=== PATIENT | female | born 1955 | race Caucasian/White ===

== ENCOUNTER 2018-06-28 18:17 | Observation (INO) | payer OTHER ==
[2018-06-28] MEDS ORDERED: MORPHINE SULFATE 4 MG/ML SYRINGE IVP STA (19:00)
[2018-06-28] MEDS ORDERED: ONDANSETRON 4 MG/2 ML VIAL IVP STA (19:00)
[2018-06-28] MEDS ORDERED: SODIUM CHLORIDE 0.9% 1,000 ML IV SCH (19:00)
--- NOTE | 2018-06-28 19:22 | ED ---
Nausea/Vomiting/Diarrhea HPI - General Source: patient, RN notes reviewed, old records reviewed Mode of arrival: ambulatory Limitations: no limitations <Maria E Carcamo - Last Filed: 06/28/18 20:21> <Cam Murray - Last Filed: 06/29/18 00:35> - General Chief complaint: Nausea/Vomiting/Diarrhea Stated complaint: vomiting/SOB/confusion Time Seen by Provider: 06/28/18 18:41 - History of Present Illness Initial comments: Patient is a 63-year-old female who presents emergency Department today with complaints of nausea and vomiting since 4 PM. She plans some upper abdominal pain and back pain. She's been dealing with chronic back issues for the past 2 months and undergoing physical therapy. She reports is generally healthy. Denies any significant comorbidities. Last time she was in the hospital was 3 years ago when she delivered her child. Patient states that she feels dehydrated and uncontrollable vomiting and it was green bile. She states that it's painful for her to take a deep breath. She complains of tingling down bilateral arms. (Maria E Carcamo) - Related Data Home Medications Medication Instructions Recorded Confirmed Aspirin EC [Ecotrin Low Dose] 81 mg PO DAILY 06/28/18 06/28/18 Cyclobenzaprine [Flexeril] 10 mg PO BID 06/28/18 06/28/18 Ibuprofen [Motrin Ib] 400 mg PO Q6H PRN 06/28/18 06/28/18 Multivitamin,Therapeutic [Thera] 1 tab PO DAILY 06/28/18 06/28/18 Vitamin B Complex 1 cap PO DAILY 06/28/18 06/28/18 Allergies Allergy/AdvReac Type Severity Reaction Status Date / Time No Known Allergies Allergy Verified 06/28/18 18:43 Review of Systems ROS Other: All systems not noted in ROS Statement are negative. <Maria E Carcamo - Last Filed: 06/28/18 20:21> ROS Other: All systems not noted in ROS Statement are negative. <Cam Murray - Last Filed: 06/29/18 00:35> ROS Statement: Those systems with pertinent positive or pertinent negative responses have been documented in the HPI. Past Medical History Additional Past Medical History / Comment(s): Back pains History of Any Multi-Drug Resistant Organisms: None Reported Past Surgical History: No Surgical Hx Reported Past Psychological History: No Psychological Hx Reported Smoking Status: Never smoker Past Alcohol Use History: None Reported Past Drug Use History: None Reported <Maria E Carcamo - Last Filed: 06/28/18 20:21> General Exam Limitations: no limitations General appearance: alert, in no apparent distress Head exam: Present: atraumatic, normocephalic, normal inspection Eye exam: Present: normal appearance, PERRL, EOMI. Absent: scleral icterus, conjunctival injection, periorbital swelling ENT exam: Present: normal exam, mucous membranes moist Neck exam: Present: normal inspection. Absent: tenderness, meningismus, lymphadenopathy Respiratory exam: Present: normal lung sounds bilaterally. Absent: respiratory distress, wheezes, rales, rhonchi, stridor Cardiovascular Exam: Present: regular rate, normal rhythm, normal heart sounds. Absent: systolic murmur, diastolic murmur, rubs, gallop, clicks GI/Abdominal exam: Present: soft, tenderness (Diffuse abdominal tenderness.), normal bowel sounds. Absent: distended, guarding, rebound, rigid Extremities exam: Present: normal inspection, full ROM, normal capillary refill. Absent: tenderness, pedal edema, joint swelling, calf tenderness Back exam: Present: normal inspection Neurological exam: Present: alert, oriented X3, CN II-XII intact Psychiatric exam: Present: normal affect Skin exam: Present: warm, dry, intact, normal color. Absent: rash <Maria E Carcamo - Last Filed: 06/28/18 20:21> - General Exam Comments Initial Comments: This is a 63-year-old female. Alert and oriented. Patient appears in no significant distress at this time. (Maria E Carcamo) Course <Cam Murray - Last Filed: 06/29/18 00:35> Vital Signs 06/28/18 06/28/18 06/28/18 18:26 20:30 21:00 Temperature 95 F L 97.5 F L Pulse Rate 145 H 120 H 118 H Respiratory 24 14 16 Rate Blood Pressure 80/50 96/64 96/67 O2 Sat by Pulse 100 98 Oximetry 06/28/18 06/28/18 06/28/18 21:30 23:00 23:26 Temperature Pulse Rate 120 H 128 H 127 H Respiratory 14 15 20 Rate Blood Pressure 121/84 116/76 130/71 O2 Sat by Pulse 100 99 100 Oximetry 04/11/19 23:33 Temperature Pulse Rate 96 Respiratory 20 Rate Blood Pressure 148/74 O2 Sat by Pulse 100 Oximetry - Reevaluation(s) Reevaluation #1: 06/28/18 23:15 Repeat EKG shows narrow complex tachycardia with a rate of 1:30. QRS 80. QT 156. QTc to 29. Normal axis. Normal QRS. No acute ST change . 06/28/18 23:36 30 EKG shows sinus tachycardia 117. IN 160. QRS 78. QT 334. QTC 465. Normal axis. Normal QRS. No acute ST change. 06/29/18 00:34 Patient does not meet sepsis criteria. UTI diagnosis is of very mild UTI. Hypotension on arrival was secondary to dehydration. Tachycardia was secondary to dehydration in SVT. (Cam Murray) Procedures <Cam Murray - Last Filed: 06/29/18 00:35> - Procedures Initial comment: Patient chemically cardioverted with single dose of 6 mg adenosine. Patient had no Tachycardia 1:30 that improved to sinus tachycardia at 117 then 108. medications. Verbal informed consent was given. Timeout was performed. (Cam Novak) Medical Decision Making - Lab Data Result diagrams: 06/28/18 19:41 - Radiology Data Radiology results: report reviewed <Maria E Carcamo - Last Filed: 06/28/18 20:21> - Lab Data Result diagrams: 06/28/18 19:41 06/28/18 19:41 - Radiology Data Radiology results: report reviewed (cT scan of the chest abdomen pelvis shows no acute process), image reviewed (Chest x-ray shows no acute process) <Cam Murray - Last Filed: 06/29/18 00:35> - Medical Decision Making Patient again reevaluated with sinus rhythm at 90 on monitor. Case was discussed in detail with Dr. Garces, who will admit for Dr. Alfred would. She d oes recommend Rocephin and echo and cardiology consult. Patient is updated. (Cam Murray) - Lab Data Lab Results 06/28/18 06/28/18 06/28/18 Range/Units 19:41 19:41 19:41 WBC 14.1 H (3.8-10.6) k/uL RBC 4.57 (3.80-5.40) m/uL Hgb 14.6 (11.4-16.0) gm/dL Hct 44.3 (34.0-46.0) % MCV 97.0 (80.0-100.0) fL MCH 32.0 (25.0-35.0) pg MCHC 33.0 (31.0-37.0) g/dL RDW 12.4 (11.5-15.5) % Plt Count 328 (150-450) k/uL Neutrophils % 86 % Lymphocytes % 7 % Monocytes % 4 % Eosinophils % 1 % Basophils % 0 % Neutrophils # 12.2 H (1.3-7.7) k/uL Lymphocytes # 1.0 (1.0-4.8) k/uL Monocytes # 0.6 (0-1.0) k/uL Eosinophils # 0.2 (0-0.7) k/uL Basophils # 0.0 (0-0.2) k/uL PT (9.0-12.0) sec INR (<1.2) APTT (22.0-30.0) sec D-Dimer (<0.60) mg/L FEU Sodium 139 (137-145) mmol/L Potassium 4.3 (3.5-5.1) mmol/L Chloride 104 (98-107) mmol/L Carbon Dioxide 24 (22-30) mmol/L Anion Gap 11 mmol/L BUN 23 H (7-17) mg/dL Creatinine 0.51 L (0.52-1.04) mg/dL Est GFR (CKD-EPI)AfAm >90 (>60 ml/min/1.73 sqM) Est GFR (CKD-EPI)NonAf >90 (>60 ml/min/1.73 sqM) Glucose 130 H (74-99) mg/dL Lactic Ac Sepsis Rflx Plasma Lactic Acid [place] 2.2 H* (0.7-2.0) mmol/L Calcium 9.9 (8.4-10.2) mg/dL Total Bilirubin 0.8 (0.2-1.3) mg/dL AST 28 (14-36) U/L ALT 31 (9-52) U/L Alkaline Phosphatase 91 (38-126) U/L Troponin I (0.000-0.034) ng/mL Total Protein 7.1 (6.3-8.2) g/dL Albumin 4.4 (3.5-5.0) g/dL Urine Color Urine Appearance (Clear) Urine pH (5.0-8.0) Ur Specific [place] (1.001-1.035) Urine Protein (Negative) Urine Glucose (UA) (Negative) Urine Ketones (Negative) Urine Blood (Negative) Urine Nitrite (Negative) Urine Bilirubin (Negative) Urine Urobilinogen (<2.0) mg/dL Ur Leukocyte Esterase (Negative) Urine RBC (0-5) /hpf Urine WBC (0-5) /hpf Ur Squamous Epith Cells (0-4) /hpf Hyaline Casts (0-2) /lpf Urine Mucus (None) /hpf 06/28/18 06/28/18 06/28/18 Range/Units 19:41 19:41 20:46 WBC (3.8-10.6) k/uL RBC (3.80-5.40) m/uL Hgb (11.4-16.0) gm/dL Hct (34.0-46.0) % MCV (80.0-100.0) fL MCH (25.0-35.0) pg MCHC (31.0-37.0) g/dL RDW (11.5-15.5) % Plt Count (150-450) k/uL Neutrophils % % Lymphocytes % % Monocytes % % Eosinophils % % Basophils % % Neutrophils # (1.3-7.7) k/uL Lymphocytes # (1.0-4.8) k/uL Monocytes # (0-1.0) k/uL Eosinophils # (0-0.7) k/uL Basophils # (0-0.2) k/uL PT 9.8 (9.0-12.0) sec INR 0.9 (<1.2) APTT 23.7 (22.0-30.0) sec D-Dimer 0.33 (<0.60) mg/L FEU Sodium (137-145) mmol/L Potassium (3.5-5.1) mmol/L Chloride (98-107) mmol/L Carbon Dioxide (22-30) mmol/L Anion Gap mmol/L BUN (7-17) mg/dL Creatinine (0.52-1.04) mg/dL Est GFR (CKD-EPI)AfAm (>60 ml/min/1.73 sqM) Est GFR (CKD-EPI)NonAf (>60 ml/min/1.73 sqM) Glucose (74-99) mg/dL Lactic Ac Sepsis Rflx Y Plasma Lactic Acid [place] (0.7-2.0) mmol/L Calcium (8.4-10.2) mg/dL Total Bilirubin (0.2-1.3) mg/dL AST (14-36) U/L ALT (9-52) U/L Alkaline Phosphatase (38-126) U/L Troponin I <0.012 (0.000-0.034) ng/mL Total Protein (6.3-8.2) g/dL Albumin (3.5-5.0) g/dL Urine Color Urine Appearance (Clear) Urine pH (5.0-8.0) Ur Specific [place] (1.001-1.035) Urine Protein (Negative) Urine Glucose (UA) (Negative) Urine Ketones (Negative) Urine Blood (Negative) Urine Nitrite (Negative) Urine Bilirubin (Negative) Urine Urobilinogen (<2.0) mg/dL Ur Leukocyte Esterase (Negative) Urine RBC (0-5) /hpf Urine WBC (0-5) /hpf Ur Squamous Epith Cells (0-4) /hpf Hyaline Casts (0-2) /lpf Urine Mucus (None) /hpf 06/28/18 Range/Units 22:25 WBC (3.8-10.6) k/uL RBC (3.80-5.40) m/uL Hgb (11.4-16.0) gm/dL Hct (34.0-46.0) % MCV (80.0-100.0) fL MCH (25.0-35.0) pg MCHC (31.0-37.0) g/dL RDW (11.5-15.5) % Plt Count (150-450) k/uL Neutrophils % % Lymphocytes % % Monocytes % % Eosinophils % % Basophils % % Neutrophils # (1.3-7.7) k/uL Lymphocytes # (1.0-4.8) k/uL Monocytes # (0-1.0) k/uL Eosinophils # (0-0.7) k/uL Basophils # (0-0.2) k/uL PT (9.0-12.0) sec INR (<1.2) APTT (22.0-30.0) sec D-Dimer (<0.60) mg/L FEU Sodium (137-145) mmol/L Potassium (3.5-5.1) mmol/L Chloride (98-107) mmol/L Carbon Dioxide (22-30) mmol/L Anion Gap mmol/L BUN (7-17) mg/dL Creatinine (0.52-1.04) mg/dL Est GFR (CKD-EPI)AfAm (>60 ml/min/1.73 sqM) Est GFR (CKD-EPI)NonAf (>60 ml/min/1.73 sqM) Glucose (74-99) mg/dL Lactic Ac Sepsis Rflx Plasma Lactic Acid [place] (0.7-2.0) mmol/L Calcium (8.4-10.2) mg/dL Total Bilirubin (0.2-1.3) mg/dL AST (14-36) U/L ALT (9-52) U/L Alkaline Phosphatase (38-126) U/L Troponin I (0.000-0.034) ng/mL Total Protein (6.3-8.2) g/dL Albumin (3.5-5.0) g/dL Urine Color Yellow Urine Appearance Clear (Clear) Urine pH 7.0 (5.0-8.0) Ur Specific [place] 1.026 (1.001-1.035) Urine Protein Negative (Negative) Urine Glucose (UA) Negative (Negative) Urine Ketones 1+ H (Negative) Urine Blood Negative (Negative) Urine Nitrite Negative (Negative) Urine Bilirubin Negative (Negative) Urine Urobilinogen <2.0 (<2.0) mg/dL Ur Leukocyte Esterase Moderate H (Negative) Urine RBC 1 (0-5) /hpf Urine WBC 22 H (0-5) /hpf Ur Squamous Epith Cells 2 (0-4) /hpf Hyaline Casts 1 (0-2) /lpf Urine Mucus Rare H (None) /hpf 06/28/18 20:21 EKG performed at 1927 interpretation of wide QRS tachycardia. On my examination appears to be narrowed complex tachycardia. Ventricular rate of 1 37 bpm. IN interval and detect. QRS duration 136 most seconds. QT QTc is 312/471 ms. (Maria E Carcamo) Critical Care Time Critical Care Time: Yes Total Critical Care Time: 32 <Cam Murray - Last Filed: 06/29/18 00:35> Disposition <Maria E Carcamo - Last Filed: 06/28/18 20:21> Is patient prescribed a controlled substance at d/c from ED?: No Decision Time: 00:35 <Cam Murray - Last Filed: 06/29/18 00:35> Clinical Impression: SVT (supraventricular tachycardia), Dehydration, Vomiting, Urinary tract infection Disposition: ADMITTED IP TO THIS HOSP Referrals: Zaina Zuniga MD [Primary Care Provider] - 1-2 days
[2018-06-28 19:59] LABS: Basophils % (A) 0 %; Eosinophils # (A) 0.2 k/uL (0-0.7); Eosinophils % (A) 1 %; HCT 44.3 % (34.0-46.0); HGB 14.6 gm/dL (11.4-16.0); Lymphocytes % (A) 7 %; Mean Platelet Volume 6.4; Monocytes # (A) 0.6 k/uL (0-1.0); Monocytes % (A) 4 %; Neutrophils # (A) 12.2 k/uL (1.3-7.7); Neutrophils % (A) 86 %; Platelet Count 328 k/uL (150-450); RBC 4.57 m/uL (3.80-5.40); RDW 12.4 % (11.5-15.5); WBC 14.1 k/uL (3.8-10.6)
[2018-06-28 20:07] LABS: INR 0.9 (<1.2); Partial Thromboplastin Time 23.7 sec (22.0-30.0); Prothrombin Time 9.8 sec (9.0-12.0)
[2018-06-28 20:09] LABS: ALT 31 U/L (9-52); AST 28 U/L (14-36); Albumin 4.4 g/dL (3.5-5.0); Alkaline Phosphatase 91 U/L (38-126); Anion Gap 11 mmol/L; Blood Urea Nitrogen 23 mg/dL (7-17); Calcium 9.9 mg/dL (8.4-10.2); Carbon Dioxide 24 mmol/L (22-30); Chloride 104 mmol/L (98-107); Glucose 130 mg/dL (74-99); Potassium 4.3 mmol/L (3.5-5.1); Sodium 139 mmol/L (137-145); Total Bilirubin 0.8 mg/dL (0.2-1.3); Total Protein 7.1 g/dL (6.3-8.2)
[2018-06-28] MEDS: SODIUM CHLORIDE 0.9% 500 ML 500 ML IV SCH ×2 (20:17→20:18)
--- NOTE | 2018-06-28 20:22 | XR ---
EXAMINATION TYPE: XR chest 2V DATE OF EXAM: 06/28/2018 COMPARISON: NONE HISTORY: Fever and vomiting TECHNIQUE: Frontal and lateral views of the chest are obtained. FINDINGS: Heart and mediastinum are normal. Lungs are clear. Diaphragm is normal. Bony thorax appear s normal. There are chest leads. IMPRESSION: Normal chest.
[2018-06-28 20:25] LABS: D-Dimer 0.33 mg/L FEU (<0.60)
--- NOTE | 2018-06-28 21:36 | CT ---
EXAMINATION TYPE: CT chest angio for PE DATE OF EXAM: 06/28/2018 COMPARISON: None HISTORY: Pain, SOB, vomitling CT DLP: 1003.5 mGycm Automated exposure control for dose reduction was used. CONTRAST: CT Chest for pulmonary embolism performed with with IV Contrast, patient injected with 100 mL of Isov ue 370. FINDINGS: There are 3-D post processed images. The lungs are clear of consolidation. There is no evidence of a pulmonary mass. There is no pleural e ffusion. There is no mediastinal adenopathy. There are no hilar masses. Thoracic aorta appears intact without evidence of aneurysm or dissection. Heart size is normal. There is no pericardial effusion. There is normal contrast opacification of the pulmonary arteries. I see no filling defect. The bony t horax is intact. IMPRESSION: Negative exam. No evidence of pulmonary embolism. Minimal interstitial density at the lung bases.
--- NOTE | 2018-06-28 21:40 | CT ---
EXAMINATION TYPE: CT abdomen pelvis w con DATE OF EXAM: 06/28/2018 COMPARISON: None HISTORY: Pain, vomiting, SOB. CT DLP: 1003.5 mGycm Automated exposure control for dose reduction was used. TECHNIQUE: Helical acquisition of images was performed from the lung bases through the pelvis. CONTRAST: Performed without Oral Contrast and with IV Contrast, patient injected with 100 mL of Isovue 370. FINDINGS: Lung bases are clear of consolidation. There is no pleural effusion. Heart size is normal. There is n o pericardial effusion. Liver spleen pancreas gallbladder appear normal. Bile ducts are not dilated. Stomach appears normal. There is no adrenal mass. Kidneys show satisfactory contrast opacification. There is no hydronephrosi s. Ureters are not dilated. Bladder distends smoothly. There is no pelvic mass. There is no free flui d in the pelvis. There is no inguinal hernia. There is no mesenteric edema. There is no sign of free air or ascites. There is no evidence of a bowel obstruction. Appendix appears normal. The bony struct ures appear intact. There is a mild lumbar levoscoliosis. There is spondylosis at L3-4 L4-5. IMPRESSION: NORMAL APPENDIX. NO SIGN OF ACUTE ABDOMEN AND PELVIS. THERE IS MILD L4-5 BONY SPINAL STENOSIS.
[2018-06-28 22:35] LABS: Appearance,Urine Clear (Clear); Bilirubin,Urine Negative (Negative); Blood,Urine Negative (Negative); Color,Urine Yellow; Glucose,Urine (UA) Negative (Negative); Hyaline Casts,Urine 1 /lpf (0-2); Ketones,Urine 1+ (Negative); Leukocyte Esterase,Urine Moderate (Negative); Mucus,Urine Rare /hpf; Nitrite,Urine Negative (Negative); Protein,Urine Negative (Negative); RBC,Urine 1 /hpf (0-5); Specific Gravity,Urine 1.026 (1.001-1.035); Squamous Epithelial Cell,Urine 2 /hpf (0-4); Urobilinogen,Urine <2.0 mg/dL (<2.0); WBC,Urine 22 /hpf (0-5)
[2018-06-28] MEDS ORDERED: ADENOSINE 3 MG/ML 2 ML VIAL IVP STA (23:29)
[2018-06-29] MEDS ORDERED: NALOXONE 0.4 MG/ML 1 ML VIAL IV PRN (00:35)
[2018-06-29 05:18] VITALS: TEMP 97.7
[2018-06-29 05:57] VITALS: BMI 26.3
--- NOTE | 2018-06-29 10:17 | P.CRDCN ---
History of Present Illness History of present illness: This is Dr. 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 Patient felt that she was having a viral syndrome and presented with nausea and sweatiness and feeling cla mmy. Her blood pressure was 80 mmHg even though her heart rates were barely 140 beats a minute. Elevated lactic acid level stenting hypoperfusion along with a borderline troponin Once she received IV adenosine symptoms of this presumed viral gastroenteritis resolved She is completely asymptomatic she has no chest discomfort no breathing trouble and would like to go home She has no risk factors such as diabetes hypertension. She is a nonsmoker PLAN: Repeat ECG and if the ST segments are unchanged then she should be able to go home I will see her as an outpatient and schedule her for an EP study and radiofrequency ablation I did talk to her about it in some detail and explained that his symptoms were from AV node reentry She does have an elevated white count and several family members in the household have a viral syndrome TSH and lipid panel HPI Patient presented with nausea weakness somewhat dizzy and clammy She thought she had a viral gastritis But she was not getting better and she started feeling very dizzy and so came to the hospital Her blood pressure was low 80 mmHg followed by 96. His mercury She was found to be in a supraventricular tachycardia consistent with AV raiza reentry and once she received IV adenosine all her symptoms resolved White count was elevated and therefore IV antibiotics have been administered I reviewed the 12-lead ECG in follow-up and it looks normal She has a borderline troponin but this most likely represents demand ischemia with a small myocardial injury secondary to hypoperfusion on account of sustained hypoperfusion.. Her lactic acid level was also slightly elevated consistent with this ROS: No fever chills or rigors, no cough, phlegm or expectoration, no, vomiting or diarrhea, no hematuria, dysuria, no musculoskeletal complaints, no strokes or seizures, no skin lesions. EXAMINATION: Afebrile 97% 7F pulse rate in the 80s, blood pressure 109/58 mmHg Breath sounds are clear no rhonchi no crackles Heart sounds S1 and S2 are normal no murmurs or gallops. Extremities are warm no edema REVIEW OF LABS, ECG & MEDICAL DATA White count 14.1 thousand, hemoglobin 40.6 Platelets normal BUN/creatinine normal Past Medical History Additional Past Medical History / Comment(s): Back pains History of Any Multi-Drug Resistant Organisms: None Reported Past Surgical History: No Surgical Hx Reported Past Psychological History: No Psychological Hx Reported Smoking Status: Never smoker Past Alcohol Use History: None Reported Past Drug Use History: None Reported - Past Family History Mother Family Medical History: Diabetes Mellitus Father Family Medical History: Coronary Artery Disease (CAD) Medications and Allergies Home Medications Medication Instructions Recorded Confirmed Type Aspirin EC [Ecotrin Low Dose] 81 mg PO DAILY 06/28/18 06/28/18 History Cyclobenzaprine [Flexeril] 10 mg PO BID 06/28/18 06/28/18 History Ibuprofen [Motrin Ib] 400 mg PO Q6H PRN 06/28/18 06/28/18 History Multivitamin,Therapeutic [Thera] 1 tab PO DAILY 06/28/18 06/28/18 History Vitamin B Complex 1 cap PO DAILY 06/28/18 06/28/18 History Allergies Allergy/AdvReac Type Severity Reaction Status Date / Time No Known Allergies Allergy Verified 06/28/18 18:43 Physical Exam Vitals: Vital Signs Temp Pulse Pulse Resp BP BP Pulse Ox 06/29/18 05:20 97.7 F 87 16 109/58 95 06/29/18 05:06 97.7 F 81 16 109/58 95 06/29/18 00:30 89 16 136/74 99 06/29/18 00:00 85 11 L 148/74 100 06/28/18 23:33 96 20 148/74 100 06/28/18 23:30 101 H 20 130/71 100 06/28/18 23:26 127 H 20 130/71 100 06/28/18 23:00 128 H 15 116/76 99 06/28/18 21:30 120 H 14 121/84 100 06/28/18 21:00 97.5 F L 118 H 16 96/67 06/28/18 20:30 120 H 14 96/64 98 06/28/18 18:26 95 F L 145 H 24 80/50 100 Intake and Output 06/28/18 06/29/18 06/29/18 22:59 06:59 14:59 Other: Voiding Method Toilet Weight 76.204 kg Results 06/28/18 19:41 06/28/18 19:41 Cardiac Enzymes 0406/28/18 06/29/18 Range/Units 19:41 19:41 06:58 AST 28 (14-36) U/L Troponin I <0.012 0.037 H* (0.000-0.034) ng/mL Coagulation 06/28/18 Range/Units 19:41 PT 9.8 (9.0-12.0) sec APTT 23.7 (22.0-30.0) sec CBC 06/28/18 Range/Units 19:41 WBC 14.1 H (3.8-10.6) k/uL RBC 4.57 (3.80-5.40) m/uL Hgb 14.6 (11.4-16.0) gm/dL Hct 44.3 (34.0-46.0) % Plt Count 328 (150-450) k/uL Comprehensive Metabolic Panel 06/28/18 Range/Units 19:41 Sodium 139 (137-145) mmol/L Potassium 4.3 (3.5-5.1) mmol/L Chloride 104 (98-107) mmol/L Carbon Dioxide 24 (22-30) mmol/L BUN 23 H (7-17) mg/dL Creatinine 0.51 L (0.52-1.04) mg/dL Glucose 130 H (74-99) mg/dL Calcium 9.9 (8.4-10.2) mg/dL AST 28 (14-36) U/L ALT 31 (9-52) U/L Alkaline Phosphatase 91 (38-126) U/L Total Protein 7.1 (6.3-8.2) g/dL Albumin 4.4 (3.5-5.0) g/dL Current Medications Generic Name Dose Route Start Last Admin Trade Name Freq PRN Reason Stop Dose Admin Sodium Chloride 1,000 mls @ 100 mls/hr 06/28/18 19:00 06/28/18 20:21 Saline 0.9% IV 100 mls/hr .Q10H NICK Administration Ceftriaxone Sodium 1 gm/ 50 mls @ 100 mls/hr 06/30/18 01:00 Sodium Chloride IVPB Q24H NICK Naloxone HCl 0.2 mg 06/29/18 00:35 Narcan IV Q2M PRN Opioid Reversal Intake and Output 06/28/18 06/29/18 06/29/18 22:59 06:59 14:59 Other: Voiding Method Toilet Weight 76.204 kg 06/28/18 19:41 06/28/18 19:41
[2018-06-29 14:28] VITALS: BP 103/66; PULSE 83; RESP 18
--- NOTE | 2018-06-29 18:08 | P.HPIM ---
History of Present Illness H&P Date: 06/29/18 Chief Complaint: Palpitation This will serve both H&P and discharge summary This is a pleasant 63-year-old lady patient of Dr. Zuniga underlying history of for sure arthritis, lumbar disc disease with lumbar spinal stenosis, seen emergency room secondary to nausea vomiting since 4 PM. Patient has off and on abdominal pain a few hours, and has had no melena no hematochezia. Patient feels dehydrated, secondary to bilious vomiting, patient does not have any chest pain, and was admitted in the emergency room secondary to sinus atrial tachycardia with heart rate of 130, requiring adenosine 6 mg. Patient was seen consultation by cardiology, as the patient shows an EKG off narrow complex tachycardia heart rate of 130, normal QT, hypotension was noted during arrival s econdary to dehydration, as well as mild pyuria. Patient has CVA tenderness on examination, patient does not recall any significant dysuria, however she does have lower intermittent mild abdominal pain. Back pain 2 months left flank No altered urine, no fever no chills. CAT scan of the abdomen and pelvis shows normal CAT scan of abdomen and pelvis, mild L4-L5 bony spinal stenosis urinalysis shows pyuria leukocyte esterase positive, WBC of 22 Emergency room, CTA was done that shows no pulmonary emboli, there is minimal interstitial density at the lung bases, no aortic dissection patient was seen consultation by cardiology, who cleared her for discharge, she has AV raiza reentry, viral syndrome, and will be studied as an outpatient with Dr. truong for EPS studies. No anticoagulation was recommended by cardiology on today's visit, however evaluating her in the office within the next week Review of Systems Constitutional: Reports as per HPI, Denies anorexia, Denies chills, Denies chronic headaches, Denies chronic pain, Denies daytime sleepiness, Denies fatigue, Denies fever, Denies lethargy, Denies malaise, Denies night sweats, Denies poor appetite, Denies sweats, Denies weakness, Denies weight gain, Denies weight loss Ears, nose, mouth and throat: Reports as per HPI, Denies ant. neck pain, Denies bleeding gums, Denies dental pain, Denies dysphagia, Denies epistaxis, Denies headache, Denies hoarseness, Denies mouth pain, Denies nasal congestion, Denies nasal discharge, Denies neck fullness/pressure, Denies neck lump, Denies nose pain, Denies odynophagia, Denies post-nasal drip, Denies sinus pain, Denies sinus pressure, Denies swelling in mouth, Denies swelling in throat, Denies sore throat, Denies vertigo, Denies voice changes Cardiovascular: Reports as per HPI, Denies chest pain, Denies claudication, Denies decreased exercise tolerance, Denies dyspnea on exertion, Denies edema, Denies high blood pressure, Denies irregular heart beat, Denies leg edema, Denies lightheadedness, Denies orthopnea, Denies palpitations, Denies paroxysmal nocturnal dyspnea, Denies phlebitis, Denies rapid heart beat, Denies shortness of breath, Denies syncope Respiratory: Reports as per HPI, Denies congestion, Denies cough, Denies cough with sputum, Denies dyspnea, Denies excessive sputum, Denies hemoptysis, Denies home oxygen, Denies pain, Denies pain on inspiration, Denies pleurisy, Denies respiratory infections, Denies sleep apnea, Denies snoring, Denies wheezing Gastrointestinal: Reports as per HPI, Reports nausea, Reports vomiting Genitourinary: Reports as per HPI, Reports flank pain, Reports stress inco ntinence, Reports urge incontinence Menstruation: Reports as per HPI, Reports postmenopausal Musculoskeletal: Reports as per HPI, Denies arm numbness/tingling, Denies atrophy, Denies fractures, Denies frequent falls, Denies gait dysfunction, Denies hot joints, Denies leg numbness/tingling, Denies limitation of motion, Denies loss of height, Denies low back pain, Denies morning stiffness, Denies muscle cramps, Denies muscle weakness, Denies myalgias, Denies neck pain, Denies neck stiffness, Denies prior amputations, Denies redness of joints, Denies shooting arm pain, Denies shooting leg pain Integumentary: Reports as per HPI Neurological: Reports as per HPI, Denies aphasia, Denies ataxia, Denies balance difficulties, Denies burning pain, Denies change in mentation, Denies change in smell/taste, Denies change in speech, Denies confusion, Denies convulsions, Denies double vision, Denies gait dysfunction, Denies head injury, Denies headaches, Denies hearing difficulties, Denies lack of coordination, Denies loss of vision, Denies memory loss, Denies migraines, Denies motor disturbance, De nies numbness, Denies paralysis, Denies paresthesias, Denies seizures, Denies sensory deficit, Denies spasticity, Denies syncope, Denies tic, Denies tingling, Denies transient paralysis, Denies tremors, Denies vertigo, Denies weakness, Denies visual changes Psychiatric: Reports as per HPI Endocrine: Reports as per HPI Hematologic/Lymphatic: Reports as per HPI Allergic/Immunologic: Reports as per HPI Past Medical History Additional Past Medical History / Comment(s): Back pains History of Any Multi-Drug Resistant Organisms: None Reported Past Surgical History: No Surgical Hx Reported Past Psychological History: No Psychological Hx Reported Smoking Status: Never smoker Past Alcohol Use History: None Reported Past Drug Use History: None Reported - Past Family History Mother Family Medical History: Diabetes Mellitus Father Family Medical History: Coronary Artery Disease (CAD) Brother(s) History Unknown: Yes (Prediabetes, CVA) Sister(s) History Unknown: Yes (Leukemia) Daughter(s) History Unknown: Yes (Healthy) Medications and Allergies Home Medications Medication Instructions Recorded Confirmed Type Aspirin EC [Ecotrin Low Dose] 81 mg PO DAILY 06/28/18 06/28/18 History Cyclobenzaprine [Flexeril] 10 mg PO BID 06/28/18 06/28/18 History Ibuprofen [Motrin Ib] 400 mg PO Q6H PRN 06/28/18 06/28/18 History Multivitamin,Therapeutic [Thera] 1 tab PO DAILY 06/28/18 06/28/18 History Vitamin B Complex 1 cap PO DAILY 06/28/18 06/28/18 History Cephalexin [Keflex] 500 mg PO TID #15 cap 06/29/18 Rx Allergies Allergy/AdvReac Type Severity Reaction Status Date / Time No Known Allergies Allergy Verified 06/28/18 18:43 Physical Exam Vitals: Vital Signs Temp Pulse Pulse Resp BP BP Pulse Ox 06/29/18 14:27 83 18 103/66 96 06/29/18 11:00 97.7 F 77 16 112/62 97 06/29/18 05:20 97.7 F 87 16 109/58 95 06/29/18 05:06 97.7 F 81 16 109/58 95 06/29/18 00:30 89 16 136/74 99 06/29/18 00:00 85 11 L 148/74 100 06/28/18 23:33 96 20 148/74 100 06/28/18 23:30 101 H 20 130/71 100 06/28/18 23:26 127 H 20 130/71 100 06/28/18 23:00 128 H 15 116/76 99 06/28/18 21:30 120 H 14 121/84 100 06/28/18 21:00 97.5 F L 118 H 16 96/67 06/28/18 20:30 120 H 14 96/64 98 06/28/18 18:26 95 F L 145 H 24 80/50 100 Intake and Output 06/29/18 06/29/18 06/29/18 06:59 14:59 22:59 Other: Voiding Method Toilet - Constitutional General appearance: cooperative, no acute distress - EENT Eyes: anicteric sclerae, PERRLA, dentition normal, normal appearance ENT: hearing grossly normal, normal oropharynx - Neck Neck: normal ROM - Respiratory Respiratory: bilateral: CTA, negative: diminished, dullness, rales - Cardiovascular Rhythm: regular Heart sounds: normal: S1, S2 Abnormal Heart Sounds: no systolic murmur, no diastolic murmur, no rub, no S3 Gallop, no S4 Gallop, no click, no other - Gastrointestinal General gastrointestinal: normal bowel sounds, tenderness (CVA) - Integumentary Integumentary: normal Results CBC & Chem 7: 06/28/18 19:41 06/28/18 19:41 Labs: Abnormal Lab Results - Last 24 Hours (Table) 06/28/18 06/28/18 06/28/18 Range/Units 19:41 19:41 19:41 WBC 14.1 H (3.8-10.6) k/uL Neutrophils # 12.2 H (1.3-7.7) k/uL BUN 23 H (7-17) mg/dL Creatinine 0.51 L (0.52-1.04) mg/dL Glucose 130 H (74-99) mg/dL Plasma Lactic Acid [place] 2.2 H* (0.7-2.0) mmol/L Troponin I (0.000-0.034) ng/mL Urine Ketones (Negative) Ur Leukocyte Esterase (Negative) Urine WBC (0-5) /hpf Urine Mucus (None) /hpf 06/28/18 06/29/18 Range/Units 22:25 06:58 WBC (3.8-10.6) k/uL Neutrophils # (1.3-7.7) k/uL BUN (7-17) mg/dL Creatinine (0.52-1.04) mg/dL Glucose (74-99) mg/dL Plasma Lactic Acid [place] (0.7-2.0) mmol/L Troponin I 0.037 H* (0.000-0.034) ng/mL Urine Ketones 1+ H (Negative) Ur Leukocyte Esterase Moderate H (Negative) Urine WBC 22 H (0-5) /hpf Urine Mucus Rare H (None) /hpf Microbiology - Last 24 Hours (Table) 06/28/18 22:25 Urine Culture - Preliminary Urine,Voided Laboratory Results WBC 14.1 k/uL (3.8-10.6) H 06/28/18 19:41 RBC 4.57 m/uL (3.80-5.40) 06/28/18 19:41 Hgb 14.6 gm/dL (11.4-16.0) 06/28/18 19:41 Hct 44.3 % (34.0-46.0) 06/28/18 19:41 MCV 97.0 fL (80.0-100.0) 06/28/18 19:41 MCH 32.0 pg (25.0-35.0) 06/28/18 19:41 MCHC 33.0 g/dL (31.0-37.0) 06/28/18 19:41 RDW 12.4 % (11.5-15.5) 06/28/18 19:41 Plt Count 328 k/uL (150-450) 06/28/18 19:41 Neutrophils % 86 % 06/28/18 19:41 Lymphocytes % 7 % 06/28/18 19:41 Monocytes % 4 % 06/28/18 19:41 Eosinophils % 1 % 06/28/18 19:41 Basophils % 0 % 06/28/18 19:41 Neutrophils # 12.2 k/uL (1.3-7.7) H 06/28/18 19:41 Lymphocytes # 1.0 k/uL (1.0-4.8) 06/28/18 19:41 Monocytes # 0.6 k/uL (0-1.0) 06/28/18 19:41 Eosinophils # 0.2 k/uL (0-0.7) 06/28/18 19:41 Basophils # 0.0 k/uL (0-0.2) 06/28/18 19:41 PT 9.8 sec (9.0-12.0) 06/28/18 19:41 INR 0.9 (<1.2) 06/28/18 19:41 APTT 23.7 sec (22.0-30.0) 06/28/18 19:41 D-Dimer 0.33 mg/L FEU (<0.60) 06/28/18 19:41 Sodium 139 mmol/L (137-145) 06/28/18 19:41 Potassium 4.3 mmol/L (3.5-5.1) 06/28/18 19:41 Chloride 104 mmol/L (98-107) 06/28/18 19:41 Carbon Dioxide 24 mmol/L (22-30) 06/28/18 19:41 Anion Gap 11 mmol/L 06/28/18 19:41 BUN 23 mg/dL (7-17) H 06/28/18 19:41 Creatinine 0.51 mg/dL (0.52-1.04) L 06/28/18 19:41 Est GFR (CKD-EPI)AfAm >90 (>60 ml/min/1.73 sqM) 06/28/18 19:41 Est GFR (CKD-EPI)NonAf >90 (>60 ml/min/1.73 sqM) 06/28/18 19:41 Glucose 130 mg/dL (74-99) H 06/28/18 19:41 Lactic Ac Sepsis Rflx Y 06/28/18 20:46 Plasma Lactic Acid [place] 0.9 mmol/L (0.7-2.0) 06/29/18 00:34 Calcium 9.9 mg/dL (8.4-10.2) 06/28/18 19:41 Total Bilirubin 0.8 mg/dL (0.2-1.3) 06/28/18 19:41 AST 28 U/L (14-36) 06/28/18 19:41 ALT 31 U/L (9-52) 06/28/18 19:41 Alkaline Phosphatase 91 U/L (38-126) 06/28/18 19:41 Troponin I 0.018 ng/mL (0.000-0.034) 06/29/18 12:23 Total Protein 7.1 g/dL (6.3-8.2) 06/28/18 19:41 Albumin 4.4 g/dL (3.5-5.0) 06/28/18 19:41 Triglycerides 43 mg/dL (<150) 06/29/18 06:58 Cholesterol 128 mg/dL (<200) 06/29/18 06:58 LDL Cholesterol, Calc 68 mg/dL (0-99) 06/29/18 06:58 HDL Cholesterol 51 mg/dL (40-60) 06/29/18 06:58 TSH 3.770 mIU/L (0.465-4.680) 06/29/18 06:58 Urine Color Yellow 06/28/18 22:25 Urine Appearance Clear (Clear) 06/28/18 22:25 Urine pH 7.0 (5.0-8.0) 06/28/18 22:25 Ur Specific [place] 1.026 (1.001-1.035) 06/28/18 22:25 Urine Protein Negative (Negative) 06/28/18 22:25 Urine Glucose (UA) Negative (Negative) 06/28/18 22:25 Urine Ketones 1+ (Negative) H 06/28/18 22:25 Urine Blood Negative (Negative) 06/28/18 22:25 Urine Nitrite Negative (Negative) 06/28/18 22:25 Urine Bilirubin Negative (Negative) 06/28/18 22:25 Urine Urobilinogen <2.0 mg/dL (<2.0) 06/28/18 22:25 Ur Leukocyte Esterase Moderate (Negative) H 06/28/18 22:25 Urine RBC 1 /hpf (0-5) 06/28/18 22:25 Urine WBC 22 /hpf (0-5) H 06/28/18 22:25 Ur Squamous Epith Cells 2 /hpf (0-4) 06/28/18 22:25 Hyaline Casts 1 /lpf (0-2) 06/28/18 22:25 Urine Mucus Rare /hpf (None) H 06/28/18 22:25 Thrombosis Risk Factor Assmnt - Choose All That Apply Each Risk Factor Represents 2 Points: Age 61-74 years Thrombosis Risk Factor Assessment Total Risk Factor Score: 2 Thrombosis Risk Factor Assessment Level: Low Risk Assessment and Plan Plan: 1. Supraventricular tachycardia/Atrial tachycardia, with AV raiza reentry, seen by Dr. truong, cleared for discharge, outpatient follow-up requiring EPS study, end-stage requiring radio frequency ablation. Admission and thyroid function test has been noted to be normal while here 2. with low-grade UTI, has CVA tenderness on examination, along with urgency, and abdominal pain in the lower abdomen, patient was started on cephalexin 500 mg 3 times a day 5 days, cultures will be sent 2. Leukocytosis, most likely secondary to urinary tract infection, next patient received IV Rocephin while here 3. Left flank pain which is persistent for the past 2 months, underlying lumbar disc disease along with subclinical UTIs, treatment as above, no narcotics has been given post discharge CAT scan of the abdomen failed to reveal any pathologies, 4. Spinal stenosis L4-L5 workup can be done as an outpatient GI prophylaxis DVT prophylaxis Discharge Medication List Aspirin EC [Ecotrin Low Dose] 81 mg PO DAILY 06/28/18 [History] Cyclobenzaprine [Flexeril] 10 mg PO BID 06/28/18 [History] Ibuprofen [Motrin Ib] 400 mg PO Q6H PRN 06/28/18 [History] Multivitamin,Therapeutic [Thera] 1 tab PO DAILY 06/28/18 [History] Vitamin B Complex 1 cap PO DAILY 06/28/18 [History] Cephalexin [Keflex] 500 mg PO TID #15 cap 06/29/18 [Rx]
--- NOTE | 2018-06-29 19:08 | ECHOF ---
Referral Reason:svt MEASUREMENTS -------- HEIGHT: 170.2 cm WEIGHT: 76.2 kg BP: 109/58 RVIDd: 3.4 cm (< 3.3) IVSd: 1.1 cm (0.6 - 1.1) LVIDd: 3.8 cm (3.9 - 5.3) LVPWd: 0.9 cm (0.6 - 1.1) IVSs: 1.6 cm LVIDs: 2.9 cm LVPWs: 1.5 cm LA Diam: 2.6 cm (2.7 - 3.8) LAESV Index (A-L): 16.17 ml/m Ao Diam: 3.5 cm (2.0 - 3.7) AV Cusp: 2.3 cm (1.5 - 2.6) MV EXCURSION: 17.614 mm (> 18.000) MV EF SLOPE: 63 mm/s (70 - 150) EPSS: 0.2 cm MV E [place]: 0.84 m/s MV DecT: 160 ms MV A [place]: 0.60 m/s MV E/A Ratio: 1.39 RAP: 5.00 mmHg RVSP: 18.36 mmHg FINDINGS -------- Sinus rhythm. This was a technically good study. The left ventricular size is normal. There is borderline concentric left ventricular hypertrophy. Overall left ventricular systolic function is normal with, an EF between 60 - 65 %. The right ventricle is mildly enlarged. Normal LA size by volume 22+/-6 ml/m2. The right atrium is normal in size. The aortic valve is trileaflet and appears structurally normal. Mild mitral regurgitation is present. Mild tricuspid regurgitation present. Right ventricular systolic pressure is normal at < 35 mmHg. The pulmonic valve was not well visualized. The aortic root size is normal. Normal inferior vena cava with normal inspiratory collapse consistent with estimated right atrial pre ssure of 5 mmHg. There is no pericardial effusion. CONCLUSIONS -------- 1. Sinus rhythm. 2. This was a technically good study. 3. The left ventricular size is normal. 4. There is borderline concentric left ventricular hypertrophy. 5. Overall left ventricular systolic function is normal with, an EF between 60 - 65 %. 6. The right ventricle is mildly enlarged. 7. Normal LA size by volume 22+/-6 ml/m2. 8. The right atrium is normal in size. 9. The aortic valve is trileaflet and appears structurally normal. 10. Mild mitral regurgitation is present. 11. Mild tricuspid regurgitation present. 12. Right ventricular systolic pressure is normal at < 35 mmHg. 13. The pulmonic valve was not well visualized. 14. The aortic root size is normal. 15. Normal inferior vena cava with normal inspiratory collapse consistent with estimated right atrial pressure of 5 mmHg. 16. There is no pericardial effusion. IT OPERATIONS SPECIALIST: Rocío Alexandra RDCS
== END 2018-06-29 17:56 | disposition home or self-care (01) ==
LOC: EC 18:17 → INTOOBSV 06-29 00:43 → 3SCARD 06-29 00:43 → UNDODISIN 06-29 17:56
PROVIDERS: ADMIT Family Medicine; ATTEND Family Medicine
DX: I47.1 Supraventricular tachycardia (principal); N39.0 Urinary tract infection, site not specified; I24.8 Other forms of acute ischemic heart disease; M48.061 Spinal stenosis, lumbar region without neurogenic claudication; R11.2 Nausea with vomiting, unspecified; E86.0 Dehydration; R19.7 Diarrhea, unspecified; R74.0 Nonspecific elevation of levels of transaminase and lactic acid dehydrogenase [LDH]; Z79.82 Long term (current) use of aspirin; Z79.899 Other long term (current) drug therapy; Z83.3 Family history of diabetes mellitus; Z82.49 Family history of ischemic heart disease and other diseases of the circulatory system
CPT/HCPCS: 96361; 96365; 96375; 99291; 36415 ×2; 93005 ×2; 93306; 85379; 80061; 80053; 84443; 83605 ×2; 84484 ×2; 85025; 85610; 85730; 81001; 87040; 87086; 71046; 71275; 74177; G0378; J2270; J2405; J0696; J0153; Q9967

== ENCOUNTER 2018-09-03 12:05 | Day surgery (SDC) | payer OTHER ==
[2018-08-29 08:28] VITALS: BMI 27.1
[~2018-09-03 12:05] MED LIST: HYDROmorphone 0.5 MG/0.5 ML SYRINGE IVP PRN; LACTATED RINGERS 1,000 ML IV SCH; MIDAZOLAM 2 MG/2 ML VIAL IV PRN; ONDANSETRON 4 MG/2 ML VIAL IVP ONE; SODIUM CHLORIDE 0.9% 1,000 ML IV SCH
[2018-09-03] MEDS ORDERED: LIDOCAINE 1% INJ 10MG/ML (20 ML MDV) SQ ONE ×2 (14:46→16:46)
[2018-09-03] MEDS ORDERED: LIDOCAINE 1% INJ 10MG/ML (20 ML MDV) ONE ×2 (16:10→16:27)
[2018-09-03] MEDS ORDERED: PROPOFOL 10 MG/ML 20 ML VIAL IV ONE (16:10)
[2018-09-03] MEDS ORDERED: MIDAZOLAM 2 MG/2 ML VIAL ONE (16:10)
[2018-09-03] MEDS ORDERED: IV FLUID CONTINUATION 900 ML IV ONE (16:10)
[2018-09-03] MEDS ORDERED: ISOPROTERENOL 250 MCG/1.25 ML SYR IV ONE (16:10)
[2018-09-03] MEDS ORDERED: fentaNYL (PF) 50 MCG/ML 2 ML AMP ONE (16:10)
[2018-09-03] MEDS ORDERED: HYDROcodone/APAP 5-325MG 1 EACH TAB PO PRN (19:05)
[2018-09-03] MEDS ORDERED: ACETAMINOPHEN TAB 325 MG TAB PO PRN (19:05)
[2018-09-03] MEDS ORDERED: ACETAMINOPHEN IV (For NPO) 1,000 MG in EMPTY BAG 1 BAG IVPB ONE (20:00)
[2018-09-03] MEDS: CYCLOBENZAPRINE 10 MG TAB PO SCH (20:44)
[2018-09-03] MEDS ORDERED: ATORVASTATIN 20 MG TAB PO SCH (21:00)
--- NOTE | 2018-09-04 07:46 | CE ---
CARDIAC ELECTROPHYSIOLOGY REPORT Lilo Reilly is a 63-year-old female who was admitted to the hospital with SVT consistent with AV raiza reentry. However, on detailed questioning, she has been complaining of an anxiety disorder, but it actually turns out that she complains of palpitations and thinks it is an anxiety disorder. She is brought in for an EP study and possible ablation. Patient was brought to the EP lab in a fasting state. Written informed consent was obtained prior to the procedure. The right and left groins were prepped and draped as per protocol. Venous sheaths were placed in the right and left femoral veins and diagnostic catheters were positioned in the high right atrium, His bundle area, right ventricle and coronary sinus. Baseline measurements were as follows: Sinus cycle length 896 milliseconds, MA interval 134 milliseconds. QRS is narrow. No delta waves 93 milliseconds, QT interval 390 milliseconds. AH interval 89 milliseconds, HV interval 37 milliseconds. Supraventricular tachycardia consistent with AV raiza reentry was very easily inducible with minimal effort and minimal stimulation as well as would start spontaneously after a PVC. The septal times were as follows V to HRA 133 milliseconds, V to 86 milliseconds, V to coronary sinus os 93 milliseconds and distal coronary sinus 133 milliseconds. Despite multiple attempts at entrainment, we could not entrain the tachycardia because it would terminate repeatedly with ventricular pacing. Sinus node recovery times could not be performed. AV node Wenckebach block could not be performed because the tachycardia was incessant and was very easily inducible. Therefore, a long sheath was placed, 4 mm tip ablation catheter was placed. A 3D electroanatomic mapping was performed. The His bundle cloud was tagged. The coronary sinus os was tagged. Tricuspid anulus was mapped. The slow pathway region outside of the coronary sinus os and anterior to it was mapped. RF ablation was applied. Good power and temperature was achieved. Junctional rhythm was obtained. Good temperatures up to 55 to 60 degrees centigrade was obtained. Following that, the tachycardia could not be induced at all on both on and off Isuprel. A detailed EP study was performed on and off Isuprel. Sinus node recovery times at 600 milliseconds was 1209 milliseconds. The MA interval post ablation 157 milliseconds. No delta waves. No evidence of slow pathway conduction antegradely. AV node Wenckebach block from the CS was 350 milliseconds. pacing was performed and raiza response was noted. Atrial extra stimulation was performed from the coronary sinus and AV node ERP was noted at 600\260 milliseconds. The VA ERP was noted at 600\410 milliseconds. High-dose Isuprel was started. AV node Wenckebach block improved to 290 milliseconds. No slow pathway conduction. No delta waves. AV raiza Wenckebach block from the coronary sinus was 260 milliseconds, VA Wenckebach block 330 milliseconds. No arrhythmias induced. No evidence of slow pathway. The tachycardia was rendered completely noninducible. All catheters were then removed and patient was transferred back to telemetry after hemostasis. RESULT: Diagnostic EP study revealing very easily inducible AV node reentry that was almost incessant. Status post slow pathway ablation for the treatment of AV raiza reentry, typical. The tachycardia was rendered noninducible. PLAN: Stop metoprolol. Continue atorvastatin and follow up with Dr. Kaba once discharged within 2 weeks. MMODL / IJN: [id number] /
--- NOTE | 2018-09-04 08:10 | P.DS ---
Providers Attending physician: Apollo Kaba Primary care physician: [facility] Course: Patient is doing well. No dizziness lightheadedness chest discomfort looks comfortable in no shortness of breath On examination Breath sounds are clear no rhonchi no crackles Heart sounds S1 and S2 are normal no murmurs or gallops no rub Rhythm is regular Abdomen is soft nontender Extremities are warm no edema Groin is healed well minimal tenderness no swelling Vitals are stable Blood pressure 123/60, pulse rate between 53 and 70 beats a minute, afebrile 97F Impression Easily inducible AV raiza reentrant tachycardia Symptomatic SVT with hypertension Dyslipidemia Status post slow pathway ablation Tachycardia rendered noninducible Suggest Stop metoprolol Ambulate in the hallways If hemodynamically stable and groin movements have healed well she will go home and follow with Dr. Page within 2 weeks Metoprolol has been discontinued Plan - Discharge Summary Discharge Rx Participant: Yes New Discharge Prescriptions: Continue RX: Ibuprofen [Motrin Ib] 400 mg PO Q6H PRN PRN Reason: Pain RX: Multivitamin,Therapeutic [Thera] 1 tab PO DAILY RX: Aspirin EC [Ecotrin Low Dose] 81 mg PO DAILY RX: Vitamin B Complex 1 cap PO DAILY RX: Atorvastatin [Lipitor] 20 mg PO HS RX: Cyclobenzaprine [Flexeril] 10 mg PO BID Discontinued Metoprolol Succinate (ER) [Toprol Xl] 25 mg PO DAILY Discharge Medication List RX: Aspirin EC [Ecotrin Low Dose] 81 mg PO DAILY 06/28/18 [History] RX: Ibuprofen [Motrin Ib] 400 mg PO Q6H PRN 06/28/18 [History] RX: Multivitamin,Therapeutic [Thera] 1 tab PO DAILY 06/28/18 [History] RX: Vitamin B Complex 1 cap PO DAILY 06/28/18 [History] RX: Atorvastatin [Lipitor] 20 mg PO HS 08/29/18 [History] RX: Cyclobenzaprine [Flexeril] 10 mg PO BID 09/03/18 [History] Follow up Appointment(s)/Referral(s): Apollo Kaba MD [STAFF PHYSICIAN] - 2 Weeks (Follow Dr. Page, [facility]) Activity/Diet/Wound Care/Special Instructions: Post EP study - Ablation instructions 1. Keep access sites dry for 2 days. 2. No heavy lifting or straining for 2 days. 3. Avoid bending the hips repeatedly for 2 days. 4. You may go up and down stairs slowly Call if the following is noted 1. Bleeding, increasing swelling or pain at the access sites. 2. Increasing chest discomfort, especially upon taking a deep breath. 3. Increasing shortness of breath, at rest or with exertion. 4. Undue cough / phlegm 5. Difficulty or pain while swallowing. 6. Pain or change in color in the extremities. 7. Fever, chills, rigors. 8. Increasing headache or neurologic symptoms. 9. Dizziness, fainting, palpitations Stop metoprolol
[2018-09-04] MEDS: CYCLOBENZAPRINE 10 MG TAB PO SCH (08:27)
[2018-09-04 08:44] VITALS: BP 97/63; PULSE 58; RESP 16; TEMP 97.5
[2018-09-04] MEDS ORDERED: ASPIRIN 81 MG PO SCH (09:00)
== END 2018-09-04 10:59 | disposition home or self-care (01) ==
LOC: CATHEP 12:05 → 1SOBS 18:57 → CATHEP 09-04 10:59
PROVIDERS: ATTEND Internal Medicine Clinical Cardiac Electrophysiology
DX: I47.1 Supraventricular tachycardia (principal); I95.9 Hypotension, unspecified; E78.5 Hyperlipidemia, unspecified; I10 Essential (primary) hypertension; Z87.891 Personal history of nicotine dependence; M51.26 Other intervertebral disc displacement, lumbar region; M48.061 Spinal stenosis, lumbar region without neurogenic claudication; Z97.2 Presence of dental prosthetic device (complete) (partial); Z79.82 Long term (current) use of aspirin; Z79.899 Other long term (current) drug therapy
CPT/HCPCS: 93623; 93613; 93653; C1894; C1769 ×2; C1730 ×3; C1732; C1893; J2250; J2001; J3010; J2704

== ENCOUNTER 2018-09-10 19:14 | Observation (INO) | payer OTHER ==
[2018-09-10] MEDS ORDERED: SODIUM CHLORIDE 0.9% 500 ML 500 ML IV STA (19:49)
--- NOTE | 2018-09-10 19:54 | ED ---
SOB HPI - General Chief Complaint: Shortness of Breath Stated Complaint: post op/cath sob, pain and swelling Time Seen by Provider: 09/10/18 19:34 Source: patient, RN notes reviewed Mode of arrival: wheelchair Limitations: no limitations - History of Present Illness Initial Comments: 63-year-old female presents emergency Department chief complaint shortness of breath. Patient states that she's been noticing intermittent shortness breath at rest last couple days more persistent today. Patient states is slightly worse with exertion. She reports no chest pain but states that she has some discomfort when she takes a deep breath no history of PE or DVT. Patient had a cardiac ablation by Dr. Briggs on 09/03/2018 for history of SVT. Patient sta gerald that it was successful she does not take any blood thinners she currently takes Lipitor, Flexeril. Patient denies fever, chills, cough, URI symptoms, nausea vomiting. Patient also states that she has pain in her left posterior knee, left calf region. - Related Data Home Medications Medication Instructions Recorded Confirmed Atorvastatin [Lipitor] 20 mg PO W/SUPPER 08/29/18 09/10/18 Cyclobenzaprine [Flexeril] 10 mg PO BID PRN 09/03/18 09/10/18 Acetaminophen Tab [Tylenol Tab] 500 mg PO BID PRN 09/10/18 09/10/18 Aspirin [[place] Aspirin EC] 81 mg PO DAILY 09/10/18 09/10/18 Allergies Allergy/AdvReac Type Severity Reaction Status Date / Time No Known Allergies Allergy Verified 09/10/18 20:52 Review of Systems ROS Statement: Those systems with pertinent positive or pertinent negative responses have been documented in the HPI. ROS Other: All systems not noted in ROS Statement are negative. Past Medical History Past Medical History: Hyperlipidemia Additional Past Medical History / Comment(s): see Dr Kaba H&P, back pain- bulging disks, History of Any Multi-Drug Resistant Organisms: None Reported Past Surgical History: Cardiac Ablation, Section Past Anesthesia/Blood Transfusion Reactions: Motion Sickness Past Psychological History: Anxiety Smoking Status: Former smoker Past Alcohol Use History: None Reported Past Drug Use History: None Reported - Past Family History Brother(s) History Unknown: Yes (Prediabetes, CVA) Sister(s) History Unknown: Yes (Leukemia) Family Medical History: Cancer Daughter(s) History Unknown: Yes (Healthy) General Exam Limitations: no limitations General appearance: alert, in no apparent distress Head exam: Present: atraumatic, normocephalic, normal inspection Eye exam: Present: normal appearance, PERRL, EOMI. Absent: scleral icterus, conjunctival injection, periorbital swelling ENT exam: Present: normal exam, normal oropharynx, mucous membranes moist Neck exam: Present: normal inspection, full ROM. Absent: tenderness, meningismus, lymphadenopathy Respiratory exam: Present: normal lung sounds bilaterally. Absent: respiratory distress, wheezes, rales, rhonchi, stridor Cardiovascular Exam: Present: regular rate, normal rhythm, normal heart sounds. Absent: systolic murmur, diastolic murmur, rubs, gallop, clicks GI/Abdominal exam: Present: soft, normal bowel sounds. Absent: distended, tenderness, guarding, rebound, rigid Extremities exam: Present: calf tenderness (Left) Skin exam: Present: warm, dry, intact, normal color. Absent: rash Course Vital Signs 09/10/18 09/10/18 09/10/18 19:25 21:04 23:07 Temperature 98.4 F 98.7 F Pulse Rate 83 73 75 Respiratory 18 18 17 Rate Blood Pressure 133/69 142/68 136/66 O2 Sat by Pulse 99 98 99 Oximetry Medical Decision Making - Medical Decision Making 63-year-old female presented for dyspnea, status post ablation. Patient labs, ultrasound, x-ray, EKG with no acute findings. Still concerned that she has some resting shortness of breath breath and exertional shortness of breath. Patient will be having held for observation, cardiology evaluation, echo. Patient otherwise is stable - Lab Data Result diagrams: 09/10/18 20:10 09/10/18 20:10 Lab Results 09/10/18 09/10/18 09/10/18 Range/Units 20:10 20:10 20:10 WBC 7.4 (3.8-10.6) k/uL RBC 4.32 (3.80-5.40) m/uL Hgb 13.9 (11.4-16.0) gm/dL Hct 42.3 (34.0-46.0) % MCV 97.7 (80.0-100.0) fL MCH 32.3 (25.0-35.0) pg MCHC 33.0 (31.0-37.0) g/dL RDW 12.0 (11.5-15.5) % Plt Count 303 (150-450) k/uL Neutrophils % 45 % Lymphocytes % 37 % Monocytes % 9 % Eosinophils % 4 % Basophils % 1 % Neutrophils # 3.3 (1.3-7.7) k/uL Lymphocytes # 2.7 (1.0-4.8) k/uL Monocytes # 0.7 (0-1.0) k/uL Eosinophils # 0.3 (0-0.7) k/uL Basophils # 0.0 (0-0.2) k/uL PT 9.7 (9.0-12.0) sec INR 0.9 (<1.2) APTT 22.1 (22.0-30.0) sec D-Dimer 0.35 (<0.60) mg/L FEU Sodium 139 (137-145) mmol/L Potassium 4.5 (3.5-5.1) mmol/L Chloride 103 (98-107) mmol/L Carbon Dioxide 29 (22-30) mmol/L Anion Gap 7 mmol/L BUN 20 H (7-17) mg/dL Creatinine 0.58 (0.52-1.04) mg/dL Est GFR (CKD-EPI)AfAm >90 (>60 ml/min/1.73 sqM) Est GFR (CKD-EPI)NonAf >90 (>60 ml/min/1.73 sqM) Glucose 90 (74-99) mg/dL Calcium 10.0 (8.4-10.2) mg/dL Magnesium 2.2 (1.6-2.3) mg/dL Total Bilirubin 0.5 (0.2-1.3) mg/dL AST 38 H (14-36) U/L ALT 29 (9-52) U/L Alkaline Phosphatase 90 (38-126) U/L Troponin I (0.000-0.034) ng/mL NT-Pro-B Natriuret Pep pg/mL Total Protein 7.6 (6.3-8.2) g/dL Albumin 4.7 (3.5-5.0) g/dL 09/10/18 09/10/18 Range/Units 20:10 20:10 WBC (3.8-10.6) k/uL RBC (3.80-5.40) m/uL Hgb (11.4-16.0) gm/dL Hct (34.0-46.0) % MCV (80.0-100.0) fL MCH (25.0-35.0) pg MCHC (31.0-37.0) g/dL RDW (11.5-15.5) % Plt Count (150-450) k/uL Neutrophils % % Lymphocytes % % Monocytes % % Eosinophils % % Basophils % % Neutrophils # (1.3-7.7) k/uL Lymphocytes # (1.0-4.8) k/uL Monocytes # (0-1.0) k/uL Eosinophils # (0-0.7) k/uL Basophils # (0-0.2) k/uL PT (9.0-12.0) sec INR (<1.2) APTT (22.0-30.0) sec D-Dimer (<0.60) mg/L FEU Sodium (137-145) mmol/L Potassium (3.5-5.1) mmol/L Chloride (98-107) mmol/L Carbon Dioxide (22-30) mmol/L Anion Gap mmol/L BUN (7-17) mg/dL Creatinine (0.52-1.04) mg/dL Est GFR (CKD-EPI)AfAm (>60 ml/min/1.73 sqM) Est GFR (CKD-EPI)NonAf (>60 ml/min/1.73 sqM) Glucose (74-99) mg/dL Calcium (8.4-10.2) mg/dL Magnesium (1.6-2.3) mg/dL Total Bilirubin (0.2-1.3) mg/dL AST (14-36) U/L ALT (9-52) U/L Alkaline Phosphatase (38-126) U/L Troponin I <0.012 (0.000-0.034) ng/mL NT-Pro-B Natriuret Pep 97 pg/mL Total Protein (6.3-8.2) g/dL Albumin (3.5-5.0) g/dL - EKG Data EKG Comments: EKG performed at 19:59 normal sinus rhythm rate of 74 KS 150 QRS 92 QT/QTC 336/417 Disposition Clinical Impression: Dyspnea, History of cardiac radiofrequency ablation Disposition: ADMITTED IP TO THIS HOSP Condition: Fair Referrals: None,Stated [Primary Care Provider] - 1-2 days
[2018-09-10 20:33] LABS: Basophils % (A) 1 %; Eosinophils # (A) 0.3 k/uL (0-0.7); Eosinophils % (A) 4 %; HCT 42.3 % (34.0-46.0); HGB 13.9 gm/dL (11.4-16.0); Lymphocytes # (A) 2.7 k/uL (1.0-4.8); Lymphocytes % (A) 37 %; MCH 32.3 pg (25.0-35.0); MCV 97.7 fL (80.0-100.0); Mean Platelet Volume 6.5; Monocytes # (A) 0.7 k/uL (0-1.0); Monocytes % (A) 9 %; Neutrophils # (A) 3.3 k/uL (1.3-7.7); Neutrophils % (A) 45 %; Platelet Count 303 k/uL (150-450); RBC 4.32 m/uL (3.80-5.40); WBC 7.4 k/uL (3.8-10.6)
[2018-09-10 20:41] LABS: ALT 29 U/L (9-52); AST 38 U/L (14-36); African American GFR (CKD) >90 (>60 ml/min/1.73 sqM); Albumin 4.7 g/dL (3.5-5.0); Alkaline Phosphatase 90 U/L (38-126); Anion Gap 7 mmol/L; Blood Urea Nitrogen 20 mg/dL (7-17); Carbon Dioxide 29 mmol/L (22-30); Chloride 103 mmol/L (98-107); Glucose 90 mg/dL (74-99); Magnesium 2.2 mg/dL (1.6-2.3); Sodium 139 mmol/L (137-145); Total Bilirubin 0.5 mg/dL (0.2-1.3); Total Protein 7.6 g/dL (6.3-8.2)
[2018-09-10 20:47] LABS: Potassium 4.5 mmol/L (3.5-5.1)
[2018-09-10 20:48] LABS: D-Dimer 0.35 mg/L FEU (<0.60); INR 0.9 (<1.2); Partial Thromboplastin Time 22.1 sec (22.0-30.0); Prothrombin Time 9.7 sec (9.0-12.0)
--- NOTE | 2018-09-10 21:49 | XR ---
EXAMINATION: XR chest 2V DATE AND TIME: 09/10/2018 8:42 PM CLINICAL INDICATION: PHH; difficulty breathing TECHNIQUE: Departmental protocol COMPARISON: 06/28/2018 FINDINGS: The lungs are clear. The pleural spaces are negative. The cardiac silhouette is not enlarged. The remainder of the mediastinal silhouette is unremarkable. The skeletal structures and soft tissues are negative for acute findings. IMPRESSION: NO ACUTE PROCESS.
--- NOTE | 2018-09-10 22:20 | US ---
EXAMINATION TYPE: US venous doppler duplex LE LT DATE OF EXAM: 09/10/2018 9:48 PM COMPARISON: NONE CLINICAL HISTORY: Pain. Pain in left leg x 5 days. Bilateral groin surgery 09/03/18. No HX DVT. Pt not on blood thinners. SIDE PERFORMED: Left TECHNIQUE: The lower extremity deep venous system is examined utilizing real time linear array sonog jovan with graded compression, doppler sonography and color-flow sonography. VESSELS IMAGED: External Iliac Vein (EIV) Common Femoral Vein Deep Femoral Vein Greater Saphenous Vein * Femoral Vein Popliteal Vein Proximal Calf Veins (* superficial vessels) Findings: No direct or indirect findings which would correlate with filling defect within the deep ve nous system of the left lower extremity. IMPRESSION: Negative for DVT, left lower extremity.
[2018-09-10] MEDS ORDERED: NITROGLYCERIN SL TABS 0.4 MG TAB SUBLINGUAL PRN (23:14)
[2018-09-11 00:08] VITALS: RESP 16
[2018-09-11] MEDS ORDERED: ALPRAZolam 0.25 MG TAB PO PRN (01:54)
[2018-09-11] MEDS ORDERED: ACETAMINOPHEN TAB 500 MG TAB PO PRN (01:54)
[2018-09-11] MEDS ORDERED: CYCLOBENZAPRINE 10 MG TAB PO PRN (01:54)
[2018-09-11] MEDS ORDERED: TEMAZEPAM 15 MG CAP PO PRN (01:54)
--- NOTE | 2018-09-11 02:30 | CT ---
INDICATION: Clinical concern for acute pulmonary embolism TECHNIQUE: CT acquisition is performed through the chest per institutional CT pulmonary angiogram protocol following the administration of IV contrast. Coronal and sagittal reformatted images and coronal and sagittal MIP images are provided. DOSE INFORMATION: DLP 304.4 mGy-cm. This CT exam was performed using one or more of the following dose reduction techniques: automated exposure control, adjustment of the mA and/or kV according to patient size, and/or use of iterative reconstruction technique. COMPARISON: CTA chest 06/28/18. FINDINGS: There is adequate opacification of the pulmonary arteries. The main pulmonary artery is normal in caliber. There is no evidence of acute pulmonary embolism. There is no thoracic aortic aneurysm or dissection. Heart size is normal. There is no pericardial effusion. There is no lymphadenopathy by CT size criteria. There is no airspace consolidation, pleural effusion, or pneumothorax. There is no pulmonary parenchymal mass or central endobronchial lesion. The visualized upper abdomen is unremarkable. There are no acute osseous findings. IMPRESSION: No evidence of acute pulmonary embolism.
[2018-09-11] MEDS ORDERED: PANTOPRAZOLE 40 MG TABLET PO SCH (07:30)
--- NOTE | 2018-09-11 08:17 | HP ---
HISTORY AND PHYSICAL DATE OF SERVICE: 09/10/2018 CHIEF COMPLAINT: Shortness of breath. HISTORY OF PRESENT ILLNESS: This is a 63-year-old woman with a past medical history of hyperlipidemia, history of cardiac ablation, anxiety, depression, not being followed by any primary physician in the outpatient setting, recently had on 09/03/2018 patient underwent a diagnostic EP evaluation revealing very inducible AV raiza reentry. The patient is complaining of shortness of breath. Currently the patient also complains of the calf pain also. the patient came to [facility] and admitted for further evaluation and treatment. Ultrasound of the leg showed no evidence of DVT. The shortness of the intermittent felt on exertion as well. The patient had a previous history of SVT. There is no history of fever or rigors. No history of headache, loss of consciousness, seizures at this time. PAST MEDICAL HISTORY: SVT, EP studies, hyperlipidemia, history of cardiac ablation, history of section. MEDICATIONS: Prior to admission include: 1. Lipitor 20 mg supper. 2. Tylenol 500 mg b.i.d. p.r.n. 3. Flexeril 10 mg b.i.d. p.r.n. 4. Aspirin 81 mg p.o. daily. ALLERGIES: None. FAMILY HISTORY: History of cancer in the family. SOCIAL HISTORY: Previous history of smoking. No history of current smoking or alcohol intake. REVIEW OF SYSTEMS: ENT: No diminished hearing, diminished vision. CARDIOVASCULAR SYSTEM: As mentioned earlier. RESPIRATORY: As mentioned earlier. GI: No nausea. : No dysuria. NERVOUS SYSTEM: No numbness or weakness. ALLERGY/IMMUNOLOGY: No asthma or hay fever. MUSCULOSKELETAL: As mentioned earlier. RHEUMATOLOGY: No history of anemia. ENDOCRINE: No history of diabetes or hypothyroid. CONSTITUTIONAL: As mentioned earlier. DERMATOLOGY: Negative. PSYCHIATRY: As mentioned earlier. PHYSICAL EXAMINATION: Alert and oriented x3. Pulse is 75, blood pressure 130/60, respirations 17, temperature 98.7, pulse ox 98% on room air. HEENT: Conjunctivae normal. Oral mucosa moist. NECK: No jugular venous distention. No lymph node enlargement. CARDIOVASCULAR SYSTEM: S1, S2, muffled. RESPIRATION: Breath sounds diminished at the bases, no rhonchi, no crackles. ABDOMEN: Soft, nontender. No mass palpable. LEGS: No edema. No swelling. NERVOUS SYSTEM: Higher functions as mentioned earlier. Moves all four limbs. LYMPHATICS: No lymph node enlargement in the neck or axillae. SKIN: No ulcer, rash. JOINTS: No active deforming arthropathy. LABS: CBC within normal limits. Sodium 130, potassium 4.5, AST 38. ASSESSMENT: 1. Shortness of breath, cough, pain for evaluation, rule out pulmonary embolism. 2. History of recent EP studies for supraventricular tachycardia. 3. Hyperlipidemia. 4. History of anxiety. 5. 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 RECOMMENDATIONS AND DISCUSSION: In this 63-year-old woman who presented with multiple complex medical issues as mentioned earlier, I would recommend a CT angio chest to rule out pulmonary embolism, otherwise venous Doppler has been negative. I would recommend consult Cardiology and continue to monitor. The DVT was negative and D-dimer was also negative. Prognosis guarded. Further recommendations to follow. I would also recommend the patient follow up closely with primary physician as well. Home medication was reviewed. See orders for further details. MMODL / IJN: [id number] /
[2018-09-11 08:35] LABS: Basophils # (A) 0.1 k/uL (0-0.2); Basophils % (A) 1 %; Eosinophils # (A) 0.3 k/uL (0-0.7); Eosinophils % (A) 4 %; HCT 41.8 % (34.0-46.0); HGB 13.4 gm/dL (11.4-16.0); Lymphocytes # (A) 2.7 k/uL (1.0-4.8); Lymphocytes % (A) 38 %; MCH 31.3 pg (25.0-35.0); MCHC 32.1 g/dL (31.0-37.0); MCV 97.5 fL (80.0-100.0); Mean Platelet Volume 7.1; Monocytes # (A) 0.6 k/uL (0-1.0); Monocytes % (A) 8 %; Neutrophils # (A) 3.3 k/uL (1.3-7.7); Neutrophils % (A) 47 %; Platelet Count 292 k/uL (150-450); RBC 4.29 m/uL (3.80-5.40); RDW 12.9 % (11.5-15.5)
[2018-09-11] MEDS ORDERED: ASPIRIN 81 MG PO SCH (09:00)
[2018-09-11] MEDS ORDERED: ASPIRIN 325 MG TAB PO SCH (09:00)
[2018-09-11] MEDS ORDERED: HEPARIN SODIUM,PORCINE 5,000 UNIT/ML 1 ML VIAL SQ SCH (09:00)
[2018-09-11 09:04] LABS: African American GFR (CKD) >90 (>60 ml/min/1.73 sqM); Anion Gap 7 mmol/L; Blood Urea Nitrogen 17 mg/dL (7-17); Calcium 9.8 mg/dL (8.4-10.2); Carbon Dioxide 29 mmol/L (22-30); Chloride 104 mmol/L (98-107); Cholesterol 133 mg/dL (<200); Glucose 87 mg/dL (74-99); HDL Cholesterol 57 mg/dL (40-60); LDL Cholesterol,Calculated 65 mg/dL (0-99); Potassium 4.3 mmol/L (3.5-5.1); Sodium 140 mmol/L (137-145); Triglycerides 56 mg/dL (<150)
--- NOTE | 2018-09-11 10:41 | P.CRDCN ---
History of Present Illness History of present illness: This is a pleasant 63-year-old female past medical history significant for dyslipidemia, SVT status post ablation and chronic back pain. She follows in the office with Dr. Kaba. We have been asked to see her in consultation secondary to shortness of breath. She underwent a successful AV node reentrant SVT ablation on September 03. Prior to the procedure she has been struggling with shortness of breath off an on with no known etiology. Since the ablation she continues to feel episodes of shortness of breath, mostly at rest, not associated with exertion. She has no associated chest pain, dizziness, palpitations, nausea, vomiting or diaphoresis. She has also noticed a pain in the left lower extremity. She started to become concerned that she had developed a blood clot after her procedure. In the emergency room she underwent a CTA chest and lower extremity duplex that were negative for PE or DVT. Also note CT showed no evidence of pericardial effusion. She is seen and examined sitting up in bed in no acute distress. She denies current/active shortness of breath. She did undergo a Lexiscan stress test in the office prior to ablation that was negative for reversible cardiac ischemia. Telemetry tracings have been unremarkable for an acute arrhythmia. EKG on arrival reveals sinus mechanism with no acute changes. Laboratory data reviewed, WBC 7, hemoglobin 13.4, plat elets 292, d-dimer 0.35, sodium 140, potassium 4.3, creatinine 0.57, mesion 2.2, AST 38, cardiac enzymes negative 3, proBNP 97, LDL 65 and HDL 57. Current cardiac medications include aspirin 81 mg daily and atorvastatin 20 mg daily. Echocardiogram obtained in June prior to her ablation reveals preserved LV systolic function with ejection fraction 60-65%, mild mitral regurgitation and mild tricuspid regurgitation noted. At the time of my exam: CONSTITUTIONAL: Denies fever. Denies chills. EYES: Denies blurred vision. Denies vision changes. Denies eye pain. EARS, NOSE, MOUTH & THROAT: Denies headache. Denies sore throat. Denies ear pain. CARDIOVASCULAR: Denies chest pain. Denies shortness of breath. Denies orthopnea. Denies PND. Denies palpitations. RESPIRATORY: Denies cough. GASTROINTESTINAL: Denies abdominal pain. Denies diarrhea. Denies constipation. Denies nausea. Denies vomiting. MUSCULOSKELETAL: Denies myalgias. INTEGUMENTARY: Denies pruitis. Denies rash. NEUROLOGIC: Denies numbness. Denies tingling. Denies weakness. PSYCHIATRIC: Denies anxiety. Denies depression. ENDOCRINE: Denies fatigue. Denies weight change. Denies polydipsia. Denies polyurina. GENITOURINARY: Denies burning, hematuria or urgency with micturation. HEMATOLOGIC: Denies history of anemia. Denies bleeding. Blood pressure 114/70 heart rate 66 afebrile maintaining oxygen saturation on room air GENERAL: This is a 63-year-old female in no apparent distress at the time of my examination. HEENT: Head is atraumatic, normocephalic. Pupils are equal, round. Sclerae anicteric. Conjunctivae are clear. Mucous membranes of the mouth are moist. Neck is supple. There is no jugular venous distention. No carotid bruit is heard. LUNGS: Clear to auscultation no wheezes, rales or rhonchi. No chest wall tenderness is noted on palpation or with deep breathing. HEART: Regular rate and rhythm without murmurs, rubs or gallops. S1 and S2 heard. ABDOMEN: Soft, nontender. Bowel sounds are heard. No organomegaly noted. EXTREMITIES: No evidence of peripheral edema and no calf tenderness noted. VASCULAR: Radial and dorsalis pedis pulses palpated, no evidence of clubbing. NEUROLOGIC: Patient is awake, alert and oriented x3. ASSESSMENT Shortness of breath, unknown etiology. An acute coronary event has been ruled out. No evidence of acute arrhythmia. Persistent for the last couple of years. History of SVT status post successful ablation Dyslipidemia Chronic back discomfort PLAN We will repeat a limited echocardiogram to assess LV function and for the presence of a pericardial effusion. Echocardiogram is normal she may be discharged home. Follow-up with Dr. Kaba as previously established. Thank you kindly for this consultation. Nurse Practitioner note has been reviewed, I agree with a documented findings and plan of care. Patient was seen and examined. Past Medical History Past Medical History: Hyperlipidemia Additional Past Medical History / Comment(s): see Dr Kaba H&P, back pain- bulging disks, History of Any Multi-Drug Resistant Organisms: None Reported Past Surgical History: Cardiac Ablation, Section Past Anesthesia/Blood Transfusion Reactions: Motion Sickness Past Psychological History: Anxiety Smoking Status: Former smoker Past Alcohol Use History: None Reported Additional Past Alcohol Use History / Comment(s): smoked for a couple years in age 20's Past Drug Use History: None Reported - Past Family History Brother(s) History Unknown: Yes (Prediabetes, CVA) Sister(s) History Unknown: Yes Family Medical History: Cancer Daughter(s) History Unknown: Yes (Healthy) Medications and Allergies Home Medications Medication Instructions Recorded Confirmed Type Atorvastatin [Lipitor] 20 mg PO W/SUPPER 08/29/18 09/10/18 History Cyclobenzaprine [Flexeril] 10 mg PO BID PRN 09/03/18 09/10/18 History Acetaminophen Tab [Tylenol Tab] 500 mg PO BID PRN 09/10/18 09/10/18 History Aspirin [[place] Aspirin EC] 81 mg PO DAILY 09/10/18 09/10/18 History Allergies Allergy/AdvReac Type Severity Reaction Status Date / Time No Known Allergies Allergy Verified 09/10/18 20:52 Physical Exam Vitals: Vital Signs Temp Pulse Pulse Resp BP BP Pulse Ox 09/11/18 04:00 97.7 F 64 16 113/66 100 09/11/18 00:00 98.0 F 72 16 153/79 100 09/10/18 23:07 98.7 F 75 17 136/66 99 09/10/18 21:04 73 18 142/68 98 09/10/18 19:25 98.4 F 83 18 133/69 99 Intake and Output 09/10/18 09/11/18 09/11/18 22:59 06:59 14:59 Other: Weight 75.296 kg Results 09/11/18 08:20 09/11/18 08:20 Cardiac Enzymes 09/10/18 09/10/18 09/11/18 Range/Units 20:10 20:10 01:57 AST 38 H (14-36) U/L Troponin I <0.012 <0.012 (0.000-0.034) ng/mL Coagulation 09/10/18 Range/Units 20:10 PT 9.7 (9.0-12.0) sec APTT 22.1 (22.0-30.0) sec CBC 09/10/18 Range/Units 20:10 WBC 7.4 (3.8-10.6) k/uL RBC 4.32 (3.80-5.40) m/uL Hgb 13.9 (11.4-16.0) gm/dL Hct 42.3 (34.0-46.0) % Plt Count 303 (150-450) k/uL Comprehensive Metabolic Panel 09/10/18 Range/Units 20:10 Sodium 139 (137-145) mmol/L Potassium 4.5 (3.5-5.1) mmol/L Chloride 103 (98-107) mmol/L Carbon Dioxide 29 (22-30) mmol/L BUN 20 H (7-17) mg/dL Creatinine 0.58 (0.52-1.04) mg/dL Glucose 90 (74-99) mg/dL Calcium 10.0 (8.4-10.2) mg/dL AST 38 H (14-36) U/L ALT 29 (9-52) U/L Alkaline Phosphatase 90 (38-126) U/L Total Protein 7.6 (6.3-8.2) g/dL Albumin 4.7 (3.5-5.0) g/dL Current Medications Generic Name Dose Route Start Last Admin Trade Name Freq PRN Reason Stop Dose Admin Acetaminophen 500 mg 09/11/18 01:54 Tylenol Tab PO BID PRN Pain Alprazolam 0.25 mg 09/11/18 01:54 Xanax PO TID PRN Anxiety Aspirin 325 mg 09/11/18 09:00 Aspirin PO DAILY [facility] Aspirin 81 mg 09/11/18 09:00 Aspirin PO DAILY [facility] Atorvastatin Calcium 20 mg 09/11/18 17:30 Lipitor PO W/SUPPER [facility] Cyclobenzaprine HCl 10 mg 09/11/18 01:54 Flexeril PO BID PRN Muscle Pain Heparin Sodium (Porcine) 5,000 unit 09/11/18 09:00 Heparin SQ Q12HR [facility] Nitroglycerin 0.4 mg 09/10/18 23:14 Nitrostat SUBLINGUAL Q5M PRN Chest Pain Pantoprazole Sodium 40 mg 09/11/18 07:30 Protonix PO AC-BRKFST [facility] Temazepam 15 mg 09/11/18 01:54 Restoril PO HS PRN Insomnia Intake and Output 09/10/18 09/11/18 09/11/18 22:59 06:59 14:59 Other: Weight 75.296 kg 09/10/18 20:10 09/10/18 20:10
[2018-09-11 12:12] VITALS: BP 129/84; PULSE 71; TEMP 98.3
[2018-09-11] MEDS ORDERED: ATORVASTATIN 20 MG TAB PO SCH (17:30)
--- NOTE | 2018-09-11 21:58 | DS ---
DISCHARGE SUMMARY FINAL DIAGNOSES: 1. Shortness of breath for evaluation and possible anxiety state. 2. Pulmonary embolism ruled out. 3. Congestive heart failure ruled out. 4. History of recent EP studies with super tachycardia. 5. Possible paroxysmal supraventricular. 6. Hyperlipidemia. 7. History of anxiety. 8. Inducible AV raiza reentry tachycardia in the EP study. DISCHARGE DISPOSITION: The patient being discharged in stable condition with guarded prognosis. Cardiology cleared the patient for discharge. HISTORY OF PRESENT ILLNESS: This 63-year-old woman with a past medical history of multiple medical problems admitted with shortness of breath. The patient recently had EP studies. Cardiology saw the patient and recommended a 2D echo with Doppler and possible discharge after that. The CTA ruled out pulmonary embolism. The patient is doing better at this time. On exam, vitals are stable. Cardiovascular: S1, S2. Abdomen soft. Nervous system: No focal deficits. DISCHARGE ADVICE AND MEDICATIONS: 1. Discharge diet is cardiac diet. 2. Activity limited until followup. 3. Follow up with Dr. Yip in 2-3 days. DISCHARGE MEDICATIONS: 1. Flexeril 10 mg b.i.d. p.r.n. 2. Lipitor 20 mg with supper. 3. Aspirin 81 mg p.o. daily. 4. Tylenol 500 mg b.i.d. p.r.n. 5. Xanax 0.25 mg t.i.d. p.r.n. Once again, the patient will be discharged in stable condition with guarded prognosis. MMODL / IJN: [id number] /
== END 2018-09-11 13:45 | disposition home or self-care (01) ==
LOC: EC 19:14 → 1SOBS 23:08
PROVIDERS: ADMIT Hospitalist; ATTEND Hospitalist
DX: R06.02 Shortness of breath (principal); E78.5 Hyperlipidemia, unspecified; I08.1 Rheumatic disorders of both mitral and tricuspid valves; G89.29 Other chronic pain; M54.9 Dorsalgia, unspecified; F32.9 Major depressive disorder, single episode, unspecified; M79.662 Pain in left lower leg; F41.9 Anxiety disorder, unspecified; Z79.82 Long term (current) use of aspirin; Z87.891 Personal history of nicotine dependence; Z79.899 Other long term (current) drug therapy; Z80.9 Family history of malignant neoplasm, unspecified
CPT/HCPCS: 96372; 99285; 36415; 93005; 93306; 85379; 83880; 80061; 80053; 80048; 83735; 84484 ×2; 85025 ×2; 85610; 85730; 71046; 93971; 71275; G0378 ×2; J1644; Q9967

== ENCOUNTER → 2023-07-11 | Outpatient (CLI) | payer MEDICARE, OTHER ==
--- NOTE | 2023-07-12 21:13 | XR ---
EXAMINATION TYPE: XR lumbosacral spine 5 views DATE OF EXAM: 07/11/2023 Comparison: None Clinical History: 68-year-old female [id number] low back pain Findings: 5 lumbar type vertebral bodies. Focal levoconvex curvature at the lower lumbar spine with associated severe degenerative disc disease. Hypertrophic facet arthropathy mid to lower lumbar spine with degen erative grade 1 retrolisthesis L3-L4. Remaining alignment is maintained. Vertebral body heights are p reserved. No pars interarticularis defect seen. Impression: 1. 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 2. Degenerative grade 1 retrolisthesis at L3-L4. 3. No vertebral compression collapse.
== END | disposition home or self-care (01) ==
LOC: RADXRMAIN 10:32
PROVIDERS: ATTEND Internal Medicine
DX: M43.16 Spondylolisthesis, lumbar region (principal); M47.816 Spondylosis without myelopathy or radiculopathy, lumbar region; M51.36 Other intervertebral disc degeneration, lumbar region; M41.86 Other forms of scoliosis, lumbar region
CPT/HCPCS: 72110

== ENCOUNTER → 2023-12-19 | Outpatient (CLI) | payer MEDICARE, OTHER ==
--- NOTE | 2023-12-20 09:56 | MR ---
EXAMINATION TYPE: MR lumbar spine wo con DATE OF EXAM: 12/19/2023 COMPARISON: None HISTORY: Lower back pain, radiates into buttocks. TECHNIQUE: Multiplanar, multisequence images of the lumbar spine were acquired without IV contrast. L1-L2: Normal disc appearance without desiccation. Mild left paracentral disc bulge. No evidence for herniation or central stenosis. No canal stenosis is present. Foramina are patent bilaterally. L2-L3: Normal disc appearance without desiccation. No herniation, protrusion or disc bulging. No ca nal stenosis is present. Foramina are patent bilaterally. L3-L4: Severe degenerative disc disease with degenerative endplate marrow change. Posterior disc bulg e with mild effacement ventral thecal sac. No evidence for disc herniation or protrusion. Facet joint arthropathy resulting in moderate bilateral stenosis of the foramina. L4-L5: Severe degenerative disc disease with degenerative endplate marrow change. Posterior disc bulg e with mild effacement ventral thecal sac. Left lateral recess stenosis. No evidence for disc herniat ion or protrusion. Facet joint arthropathy resulting in moderate bilateral stenosis of the foramina. L5-S1: Mild to moderate degenerative disc desiccation with mild posterior disc bulge. No herniation o f protrusion. No central stenosis. Lumbar segments are intact. No paraspinal masses are identified. Conus medullaris has a normal appe arance. IMPRESSION: Degenerative changes as noted. [facility], , 12/20/2023 9:54 AM
== END | disposition home or self-care (01) ==
LOC: RADMRIMAIN 13:18
PROVIDERS: ATTEND Internal Medicine
DX: M54.50 Low back pain, unspecified
CPT/HCPCS: 72148

== ENCOUNTER 2024-06-12 11:36 | Emergency (ER) | payer MEDICARE, OTHER ==
[2024-06-12 11:43] VITALS: TEMP 98.3
--- NOTE | 2024-06-12 12:03 | ED ---
Abdominal Pain HPI - General Chief Complaint: Abdominal Pain Stated Complaint: Abd pain Time Seen by Provider: 06/12/24 11:49 Source: patient, RN notes reviewed Mode of arrival: ambulatory Limitations: no limitations - History of Present Illness Initial Comments: This is a 69-year-old female who presents to the emergency department for abdominal pain. Patient reports not feeling well since about 05/27/2024. States that she has had intermittent abdominal discomfort, however this got much worse over the last 4 days. Pain is in the right lower quadrant. She has occasional nausea. Denies any vomiting or changes in bowel/bladder habits. She has not measured any fevers but has had the chills. She saw her PCP today and was advised to come here for evaluation of possible appendicitis. MD Complaint: abdominal pain - Related Data Home Medications Medication Instructions Recorded Confirmed RX: Atorvastatin [Lipitor] 20 mg PO W/SUPPER 08/29/18 09/10/18 RX: Cyclobenzaprine [Flexeril] 10 mg PO BID PRN 09/03/18 09/10/18 RX: Acetaminophen Tab [Tylenol] 500 mg PO BID PRN 09/10/18 09/10/18 RX: Aspirin [[place] Aspirin EC] 81 mg PO DAILY 09/10/18 09/10/18 Previous Rx's Medication Instructions Recorded RX: ALPRAZolam [Xanax] 0.25 mg PO TID PRN #15 tab 09/11/18 RX: Meloxicam [Mobic] 15 mg PO DAILY PRN #20 tab 06/12/24 Allergies Allergy/AdvReac Type Severity Reaction Status Date / Time No Known Allergies Allergy Verified 06/12/24 11:43 Review of Systems ROS Statement: Those systems with pertinent positive or pertinent negative responses have been documented in the HPI. ROS Other: All systems not noted in ROS Statement are negative. Past Medical History Past Medical History: Hyperlipidemia Additional Past Medical History / Comment(s): see Dr Kaba H&P, back pain- bulging disks, History of Any Multi-Drug Resistant Organisms: None Reported Past Surgical History: Cardiac Ablation, Section Past Anesthesia/Blood Transfusion Reactions: Motion Sickness Past Psychological History: Anxiety Smoking Status: Never smoker Past Alcohol Use History: None Reported Past Drug Use History: None Reported - Past Family History Brother(s) History Unknown: Yes (Prediabetes, CVA) Sister(s) History Unknown: Yes Family Medical History: Cancer Daughter(s) History Unknown: Yes (Healthy) General Exam Limitations: no limitations General appearance: alert, in no apparent distress Head exam: Present: atraumatic, normocephalic, normal inspection Respiratory exam: Present: normal lung sounds bilaterally. Absent: respiratory distress, wheezes, rales, rhonchi, stridor Cardiovascular Exam: Present: regular rate, normal rhythm GI/Abdominal exam: Present: soft, tenderness (RLQ), normal bowel sounds. Absent: distended Neurological exam: Present: alert, oriented X3, CN II-XII intact Psychiatric exam: Present: normal affect, normal mood Skin exam: Present: warm, dry, intact, normal color. Absent: rash Course Vital Signs 06/12/24 11:38 Temperature 98.3 F Pulse Rate 88 Respiratory 18 Rate Blood Pressure 178/91 O2 Sat by Pulse 99 Oximetry Medical Decision Making - Medical Decision Making This is a 69 year old female who presents to the emergency department for abdominal pain. Was pt. sent in by a medical professional or institution? @ -Her PCP Did you speak to anyone other than the patient for history? @ -No Did you review nursing and triage notes? @ -Yes, and I agree, it is accurate with regards to the patient's symptoms. Were old charts reviewed? @ -No Differential Diagnosis? @ -Differential Abdominal Pain Women: Appendicitis, Cholecystitis, diverticulosis, ischemic bowel, pancreatitis, hepatitis, UTI, gastroenteritis, AAA, incarcerated hernia, bowel obstruction, constipation, inflammatory bowel, hepatitis, peptic ulcer disease, splenic in farction, perforated viscus, vulvitis, ovarian torsion, PID, kidney stone, placenta abruption, this is not meant to be an all-inclusive list EKG interpreted by me (3pts min.)? @ -Not obtained X-rays interpreted by me (1pt min.)? @ -Not obtained CT interpreted by me (1pt min.)? @ -CT scan of the abdomen and pelvis obtained. My interpretation identifies no bowel wall thickening or free air. U/S interpreted by me (1pt. min.)? @ -Not obtained What testing was considered but not performed? (CT, X-rays, U/S, labs)? Why? @ -None What meds were considered but not given? Why? @ -None Did you discuss the management of the patient with other professionals? @ -No Did you reconcile home meds? @ -No Was smoking cessation discussed for >3mins.? @ -No Was critical care preformed (if so, how long)? @ -No Were there social determinants of health that impacted care today? How? (Homelessness, low income, unemployed, alcoholism, drug addiction, transportation, low edu. Level, literacy, decrease access to med. care, long-term, rehab)? @ -No Was there de-escalation of care discussed even if they declined? (Discuss DNR or withdrawal of care, Hospice)? @ -No What co-morbidities impacted this encounter? (DM, HTN, Smoking, COPD, CAD, Cancer, CVA, Hep., AIDS, mental health diagnosis, sleep apnea, morbid obesity)? @ -None Was patient admitted / discharged? @ -Discharged. Lab work unremarkable. CT scan of the abdomen and pelvis obtained revealing no acute process to account for her symptoms. She does have a 10 mm calcification suggestive of an ossified fibroid. This is stable when compared with prior imaging. Findings reviewed with the patient. The cause of her symptoms is not entirely clear. It is possible that the fibroid is causing discomfort. However, advised that she will need to follow back up with her PCP for reevaluation and discussion of any additional testing if necessary. Symptoms well-controlled in the emergency department. Prescription for meloxicam provided to see if that offers any additional relief. Patient d ischarged home in stable condition. Case discussed with ED attending Dr. Peterson. Return precautions reviewed in depth, the patient is instructed to return to the emergency department with any new, worsening, or concerning symptoms. Patient verbalized understanding. Undiagnosed new problem with uncertain prognosis? @ -None Drug Therapy requiring intensive monitoring for toxicity (Heparin, Nitro, Insulin, Cardizem)? @ -None Were any procedures done? @ -None Diagnosis/symptom? @ -Abdominal pain Acute, or Chronic, or Acute on Chronic? @ -Acute Uncomplicated (without systemic symptoms) or Complicated (systemic symptoms)? @ -Uncomplicated Side effects of treatment? @ -None Exacerbation, Progression, or Severe Exacerbation] @ -Not applicable Poses a threat to life or bodily function? @ -No - Lab Data Result diagrams: 06/12/24 12:00 06/12/24 12:00 Lab Results 06/12/24 06/12/24 06/12/24 Range/Units 12:00 12:00 12:00 WBC 10.5 (3.8-10.6) k/uL RBC 4.65 (3.80-5.40) m/uL Hgb 14.8 (11.4-16.0) gm/dL Hct 45.1 (34.0-46.0) % MCV 96.9 (80.0-100.0) fL MCH 31.8 (25.0-35.0) pg MCHC 32.8 (31.0-37.0) g/dL RDW 11.8 (11.5-15.5) % Plt Count 328 (150-450) k/uL MPV 7.4 Neutrophils % 58 % Lymphocytes % 31 % Monocytes % 7 % Eosinophils % 2 % Basophils % 0 % Neutrophils # 6.1 (1.3-7.7) k/uL Lymphocytes # 3.3 (1.0-4.8) k/uL Monocytes # 0.7 (0-1.0) k/uL Eosinophils # 0.2 (0-0.7) k/uL Basophils # 0.0 (0-0.2) k/uL Sodium 136 L (137-145) mmol/L Potassium 4.5 (3.5-5.1) mmol/L Chloride 102 (98-107) mmol/L Carbon Dioxide 27 (22-30) mmol/L Anion Gap 7 mmol/L BUN 20 H (7-17) mg/dL Creatinine 0.72 (0.52-1.04) mg/dL Est GFR (CKD-EPI)AfAm >90 (>60 ml/min/1.73 sqM) Est GFR (CKD-EPI)NonAf 88 (>60 ml/min/1.73 sqM) Glucose 111 H (74-99) mg/dL Plasma Lactic Acid [place] 1.1 (0.7-2.0) mmol/L Calcium 9.9 (8.4-10.2) mg/dL Total Bilirubin 1.0 (0.2-1.3) mg/dL AST 29 (14-36) U/L ALT 19 (4-34) U/L Alkaline Phosphatase 97 (38-126) U/L Total Protein 7.3 (6.3-8.2) g/dL Albumin 4.7 (3.5-5.0) g/dL Urine Color Urine Appearance (Clear) Urine pH (5.0-8.0) Ur Specific [place] (1.001-1.035) Urine Protein (Negative) Urine Glucose (UA) (Negative) Urine Ketones (Negative) Urine Blood (Negative) Urine Nitrite (Negative) Urine Bilirubin (Negative) Urine Urobilinogen (<2.0) mg/dL Ur Leukocyte Esterase (Negative) 06/12/24 Range/Units 13:41 WBC (3.8-10.6) k/uL RBC (3.80-5.40) m/uL Hgb (11.4-16.0) gm/dL Hct (34.0-46.0) % MCV (80.0-100.0) fL MCH (25.0-35.0) pg MCHC (31.0-37.0) g/dL RDW (11.5-15.5) % Plt Count (150-450) k/uL MPV Neutrophils % % Lymphocytes % % Monocytes % % Eosinophils % % Basophils % % Neutrophils # (1.3-7.7) k/uL Lymphocytes # (1.0-4.8) k/uL Monocytes # (0-1.0) k/uL Eosinophils # (0-0.7) k/uL Basophils # (0-0.2) k/uL Sodium (137-145) mmol/L Potassium (3.5-5.1) mmol/L Chloride (98-107) mmol/L Carbon Dioxide (22-30) mmol/L Anion Gap mmol/L BUN (7-17) mg/dL Creatinine (0.52-1.04) mg/dL Est GFR (CKD-EPI)AfAm (>60 ml/min/1.73 sqM) Est GFR (CKD-EPI)NonAf (>60 ml/min/1.73 sqM) Glucose (74-99) mg/dL Plasma Lactic Acid [place] (0.7-2.0) mmol/L Calcium (8.4-10.2) mg/dL Total Bilirubin (0.2-1.3) mg/dL AST (14-36) U/L ALT (4-34) U/L Alkaline Phosphatase (38-126) U/L Total Protein (6.3-8.2) g/dL Albumin (3.5-5.0) g/dL Urine Color Colorless Urine Appearance Clear (Clear) Urine pH 6.5 (5.0-8.0) Ur Specific [place] 1.016 (1.001-1.035) Urine Protein Negative (Negative) Urine Glucose (UA) Negative (Negative) Urine Ketones Negative (Negative) Urine Blood Negative (Negative) Urine Nitrite Negative (Negative) Urine Bilirubin Negative (Negative) Urine Urobilinogen <2.0 (<2.0) mg/dL Ur Leukocyte Esterase Negative (Negative) - Radiology Data Radiology results: report reviewed, image reviewed Disposition Clinical Impression: Abdominal pain Disposition: HOME SELF-CARE Instructions (If sedation given, give patient instructions): Abdominal Pain (ED) Additional Instructions: Return to the emergency department with any new, worsening, or concerning symptoms. Try taking the meloxicam once daily for pain relief. Do not take any other anti-inflammatories such as ibuprofen with this. You may take it with Tylenol. Follow up with your primary care provider in 1-2 days. Prescriptions: RX: Meloxicam [Mobic] 15 mg PO DAILY PRN #20 tab PRN Reason: Pain Is patient prescribed a controlled substance at d/c from ED?: No Referrals: Perico Matos MD [Primary Care Provider] - 1-2 days Time of Disposition: 14:09
[2024-06-12 12:14] LABS: Basophils % (A) 0 %; Eosinophils # (A) 0.2 k/uL (0-0.7); Eosinophils % (A) 2 %; HCT 45.1 % (34.0-46.0); HGB 14.8 gm/dL (11.4-16.0); Lymphocytes # (A) 3.3 k/uL (1.0-4.8); Lymphocytes % (A) 31 %; MCH 31.8 pg (25.0-35.0); MCHC 32.8 g/dL (31.0-37.0); MCV 96.9 fL (80.0-100.0); Mean Platelet Volume 7.4; Monocytes # (A) 0.7 k/uL (0-1.0); Monocytes % (A) 7 %; Neutrophils # (A) 6.1 k/uL (1.3-7.7); Neutrophils % (A) 58 %; Platelet Count 328 k/uL (150-450); RBC 4.65 m/uL (3.80-5.40); RDW 11.8 % (11.5-15.5); WBC 10.5 k/uL (3.8-10.6)
[2024-06-12] MEDS: SODIUM CHLORIDE 0.9% 1,000 ML IV ONE (12:19)
[2024-06-12] MEDS: MORPHINE SULFATE 4 MG/ML SYRINGE IVP STA (12:21)
[2024-06-12] MEDS: KETOROLAC 15 MG/ML 1 ML VIAL IVP STA (12:21)
[2024-06-12 12:26] LABS: ALT 19 U/L (4-34); African American GFR (CKD) >90 (>60 ml/min/1.73 sqM); Anion Gap 7 mmol/L; Blood Urea Nitrogen 20 mg/dL (7-17); Calcium 9.9 mg/dL (8.4-10.2); Carbon Dioxide 27 mmol/L (22-30); Chloride 102 mmol/L (98-107); Glucose 111 mg/dL (74-99); Non-African American GFR(CKD) 88 (>60 ml/min/1.73 sqM); Sodium 136 mmol/L (137-145)
[2024-06-12 12:27] LABS: AST 29 U/L (14-36); Albumin 4.7 g/dL (3.5-5.0); Alkaline Phosphatase 97 U/L (38-126); Potassium 4.5 mmol/L (3.5-5.1); Total Protein 7.3 g/dL (6.3-8.2)
--- NOTE | 2024-06-12 13:09 | CT ---
EXAMINATION TYPE: CT abdomen pelvis w con DATE OF EXAM: 06/12/2024 COMPARISON: Prior CT June 28, 2018 CLINICAL INDICATION: Female, 69 years old with history of RLQ abdominal pain, RLQ pain, TECHNIQUE: CT scan of the abdomen and pelvis is performed with IV Contrast, patient injected with 100 ml mL of I sovue 300., (none if empty) Oral contrast used: without Oral Contrast (none if empty) CT DLP: 893.3 mGycm, Automated exposure control for dose reduction was used. FINDINGS: LUNG BASES: No significant abnormality is appreciated. LIVER/GB: No significant abnormality is appreciated. PANCREAS: No significant abnormality is seen. SPLEEN: No significant abnormality is seen. ADRENALS: No significant abnormality is seen. KIDNEYS: No significant abnormality is seen. BOWEL: Slightly suboptimal evaluation without enteric contrast. No abnormal small or large bowel dila tation. Normal-appearing appendix from the cecum in the right pelvis is noted. Uterus:. Slightly retroflexed uterus. Approximately 10 mm calcification along the right peripheral as pect and reflect ossified fibroid is redemonstrated. LYMPH NODES: No greater than 1cm abdominal or pelvic lymph nodes are appreciated. OSSEOUS STRUCTURES: Levoconvex scoliosis centered at L4 level is redemonstrated. Persistent multileve l moderate disc space narrowing L3-L4 through the L5-S1 levels. OTHER: Tiny fat-containing umbilical hernia. IMPRESSION: No significant new/acute finding is seen to account for patient's clinical symptoms of ri ght lower quadrant pain. [facility], , 06/12/2024 1:07 PM
[2024-06-12 13:51] LABS: Appearance,Urine Clear (Clear); Bilirubin,Urine Negative (Negative); Blood,Urine Negative (Negative); Color,Urine Colorless; Glucose,Urine (UA) Negative (Negative); Ketones,Urine Negative (Negative); Leukocyte Esterase,Urine Negative (Negative); Nitrite,Urine Negative (Negative); PH, Urine 6.5 (5.0-8.0); Protein,Urine Negative (Negative); Specific Gravity,Urine 1.016 (1.001-1.035); Urobilinogen,Urine <2.0 mg/dL (<2.0)
[2024-06-12] MEDS: ACET/COD 300 MG/30 MG STARTER PACK 6 TAB BTL PO STA (14:37)
[2024-06-12 14:47] VITALS: BP 139/66; PULSE 78; RESP 20
== END 2024-06-12 14:46 | disposition home or self-care (01) ==
LOC: EC 11:36
DX: R10.31 Right lower quadrant pain (principal)
CPT/HCPCS: 36415; 80053; 83605; 85025; 81003; 74177; 99284; 96374; 96375; 96361; J2270; J1885; Q9967